=== PATIENT | female | born 1975 | race African-American/Black ===

== ENCOUNTER 2016-09-22 18:01 | Inpatient (IN) ==
[2016-09-22] MEDS ORDERED: LORazepam 2 MG/1 ML VIAL IV STA (18:27)
[2016-09-22] MEDS ORDERED: ONDANSETRON 4 MG/2 ML VIAL IV STA (18:27)
--- NOTE | 2016-09-22 18:33 | Emergency Department Note ---
Arrival - Arrival Chief Complaint: Weakness Stated Complaint: Problems Breathing ED Nursing Triage Note: Pt c/o weakness, feels shakey, chills, cough, and SOB Mode of Arrival: Ambulatory Limitations: No Limitations Source: Patient Time Seen by Provider: 09/22/16 18:27 - History of Present Illness HPI Narrative: This 41-year-old black female presents approximately 1 week post discharge from this institution where she had been treated for a malignant pleural effusion secondary to presumed metastatic breast cancer. After treatment of her effusion she felt significantly better and was discharged; however, in the past several days she has once again began to feel breathless with a bothersome dry cough and increased dyspnea on exertion. She likewise states she feels shaky and weird and side. She denies any chills, fever, sputum production, chest pain , hemoptysis, or other pain anywhere else. She currently is in a [facility] protocol for her breast cancer which was initially treated with right mastectomy. Currently the patient appears in no acute distress but is extremely anxious. Onset (ago): week(s) (Patient presents 1 week post onset of symptom) Date of Last Menstrual Period: does not have anymore Allergies/Adverse Reactions: Allergies Allergy/AdvReac Type Severity Reaction Status Date / Time Penicillins Allergy HIVES Verified 06/01/16 09:09 Home Medications: Home Medications Medication Instructions Recorded Confirmed Type Exemestane 25 mg PO DAILY W/SUPPER 09/14/16 09/22/16 History Zaleplon [Sonata] 5 mg PO BEDTIME PRN #0 capsule 09/17/16 09/22/16 Rx amLODIPine [Norvasc] 5 mg PO DAILY tablet 09/17/16 09/22/16 Rx metFORMIN [Glucophage] 500 mg PO TID W/MEALS tablet 09/17/16 09/22/16 Rx InvestigationalEntinostat 5mg 5 mg PO TU 09/22/16 09/22/16 History Or Placebo *Investigational Albuterol Sulfate [Proair Hfa] 1 puff INH Q4H PRN 09/22/16 09/22/16 History levoFLOXacin [Levofloxacin] 500 mg PO DAILY 09/22/16 09/22/16 History Review of System - Review of System 12 point system: reviewed and no additional remarkable complaints except as stated - Review of System Constitutional: Present: as per HPI Respiratory: Present: as per HPI Cardiovascular: Present: as per HPI Medical,Surgical,& Family Hx - Medical History Cardio: History of: Hypertension Endocrine: History of: Diabetes Mellitus (IDDM) Respiratory: History of: Pneumonia Reproductive: History of: Breast Cancer (right) - Surgical History Reproductive Surgeries: Comment Only: Gynecologic Surgery (R Masectomy (2012)) - Family History Family History: Reports;: Family Cancer, Family Diabetes, Family Heart Disease, Family Hypertension, Family Stroke - Social History Smoking Status: Never smoker Exam Physical Examination: GENERAL: Well developed, well nourished black female in no acute distress. HEENT: Normocephalic. No trauma. Moist mucous membranes. EOMI. PERRLA. ENT NML NECK: Supple. No adenopathy. CARDIAC: Regular. No murmurs. Heart rate 120 CHEST: Clear to auscultation but decreased breath sounds at the right base. No respiratory distress. O2 sat 100% status post right mastectomy. ABDOMEN: Soft. Nontender. Active bowel sounds. EXTREMITIES: No trauma. Normal ROM. No pedal edema. SKIN: No diaphoresis. No rash. NEURO: Alert. Oriented 3. Motor, sensory, vibratory intact. Very anxious. No focal deficits. Vital Signs: Vital Signs Temperature 97.5 F L 09/22/16 19:07 Pulse Rate 119 H 09/22/16 19:07 Respiratory Rate 20 09/22/16 19:07 Blood Pressure 144/105 09/22/16 19:07 O2 Sat by Pulse Oximetry 100 09/22/16 18:05 Course - Reevaluation(s) Reevaluation #1: Advised patient number turned of effusion and need for hospitalization. - Consultations Consultation #1: Discussed with hospitalist service who will admit for further evaluation treatment. Results - Labs CBC & BMP: 09/22/16 18:58 09/22/16 18:58 Labs: I have reviewed the lab and noted its gross normality. - Impressions EKG: Sinus tachycardia with short CA interval. Normal QRS duration. Left axis deviation. Poor R-wave progression anteriorly. Nonspecific ST changes. No acute injury pattern. - Diagnostic Findings Procedure: Chest x-ray: image reviewed by me, report reviewed by me ( Persistence of right pleural effusion with possible right lower lobe infiltrate/ atelectasis) Disposition Clinical Impression: Recurrent malignant effusion, Right breast cancer, Status post right mastectomy Case discussed with: patient, patient's family Disposition: Still a Patient Condition: Stable Time of Disposition: 19:57
[2016-09-22] MEDS ORDERED: ONDANSETRON 4 MG/2 ML VIAL ONE (19:08)
[2016-09-22] MEDS ORDERED: LORazepam 2 MG/1 ML VIAL ONE (19:09)
[2016-09-22 19:12] LABS: Basophils # 0.1 10*3/uL (0.0-0.2); Basophils % 0.6 % (0.0-0.8); Eosinophils # 0.3 10*3/uL (0.0-0.87); Eosinophils % 3.8 % (0.00-10.9); Hematocrit 39.3 VOL% (35.7-47.0); Hemoglobin 12.5 GM/DL (12.0-16.0); Immature Granulocytes % 0.3 %; Immature Granulocytes Absolute 0.03 #; Lymphocytes # 1.2 10*3/uL (1.4-4.0); Lymphocytes % 13.2 % (21.3-54.2); Mean Corpuscular HGB Conc 31.8 GM/DL (32-36); Mean Corpuscular Hemoglobin 28 PG (27-34); Mean Corpuscular Volume 87.3 FL (87-102); Mean Platelet Volume 11.7 FL (9.6-12.0); Monocytes % 10.6 % (1.7-12.7); Neutrophils # 6.5 10*3/uL (1.4-7.4); Neutrophils % 71.5 % (38.7-73.9); Platelet Count 183 T/CUMM (130-400); Red Cell Distribution Width 14.7 % (9.3-17.3)
[2016-09-22 19:18] LABS: Apearance,Urine CLEAR (Clear); Bilirubin,Urine Negative (Negative); Blood, Urine Negative (Negative); Glucose,Urine (UA) Negative (Negative); Ketones,Urine Negative (Negative); Mucus,Urine Occasional /LPF (Occasional); Nitrite,Urine Negative (Negative); Protein,Urine Negative; Squamous Epithelial Cell,Urine Occasional /HPF (0-10); Urine Color Yellow (Yellow); Urine Specific Gravity 1.021 (1.001-1.035); Urine Urobilinogen < 2.0 EU/DL (0.2-1.0); WBC,Urine <1 /HPF (0-6)
[2016-09-22 19:24] LABS: PT Patient Result 10.1 SECS; Partial Thromboplastin Time 27.1 SECS (0-40)
[2016-09-22 19:28] LABS: Barbiturates Screen,Urine Negative (Negative); Benzodiazepines Screen,Urine Negative (Negative); Cannabinoid Screen,Urine Negative (Negative); Opiate Screen,Urine Positive (Negative); Phencyclidine Screen,Urine Negative (Negative)
[2016-09-22 19:33] LABS: Alanine Aminotransferase 25 U/L (13-56); Albumin 3.6 G/DL (3.4-5.0); Alkaline Phosphatase 173 U/L (45-117); Aspartate Amino Transferase 16 U/L (0-37); Bilirubin,Total < 0.39 MG/DL (0.2-1.0); Blood Urea Nitrogen 15 MG/DL (7-18); Calcium 8.7 MG/DL (8.5-10.1); Glucose 190 MG/DL (74-106); Osmolality,Calculated 282.5 MOS/KG (273-304); Potassium 3.7 MMOL/L (3.5-5.1); Sodium 139 MMOL/L (136-145); Troponin I Only < 0.015 NG/ML (0.00-0.045)
--- NOTE | 2016-09-22 19:39 | XRay Report ---
History: Shortness of breath Date: 09/22/2016 Study: Chest x-ray PA and lateral Comparison exam: September 16, 2016 chest x-ray There is continue mild cardiomegaly. The mediastinal contour is unchanged. The pulmonary vasculature is nonengorged. The left lung is clear. There is some atelectasis/infiltrate in the right lung base which is grossly similar to the comparison study. There is mild right-sided pleural effusion which is the same or mildly increased. The osseous structures are unchanged. Impression: Right basilar atelectasis/infiltrate and pleural effusion, the same or only mildly increased PROCEDURE INTERPRETED AT [facility] DEPARTMENT OF RADIOLOGY Final Report Signed by: Dr. Indira Lopez
--- NOTE | 2016-09-22 20:26 | Hospitalist History & Physical ---
Assessment and Plan (1) Dyspnea Status: Acute Current Visit: No (2) Diabetes mellitus Status: Acute Current Visit: No (3) Metastatic breast cancer Status: Acute Current Visit: No (4) Pneumonia Status: Acute Current Visit: No (5) Hypertension Status: Acute Current Visit: No (6) Pleural effusion Status: Acute Assessment and plan: Our plan for this patient will be admission to our service. We will continue her home meds including antibiotic. Her basilar infiltrate and pleural effusion is only mildly increased. Will consult pulmonary for their input to see if additional intervention is needed for this patient. Current Visit: No History of Present Illness Chief complaint: Shortness of breath History of present illness: Ms. Calzada is a 41 year old female past medical history significant for diabetes hypertension and metastatic breast cancer who was recently hospitalized our service. She was hospitalized for a presumed malignant pleural effusion that was drained and discharged on Levaquin. She is doing well for a few days afterwards but for the past several days she began feeling breathless and a bothersome cough. She has noted increased dyspnea on exertion. And she feels shaky at times. She denies any fever sputum production chest pain hemoptysis or any pain elsewhere. She is currently receiving treatment for her metastatic breast cancer at [facility]. I was consulted to admit the patient to the emergency room. Home Medications Medication Instructions Recorded Confirmed Type Exemestane 25 mg PO DAILY W/SUPPER 09/14/16 09/22/16 History Zaleplon [Sonata] 5 mg PO BEDTIME PRN #0 capsule 09/17/16 09/22/16 Rx amLODIPine [Norvasc] 5 mg PO DAILY tablet 09/17/16 09/22/16 Rx metFORMIN [Glucophage] 500 mg PO TID W/MEALS tablet 09/17/16 09/22/16 Rx InvestigationalEntinostat 5mg 5 mg PO TU 09/22/16 09/22/16 History Or Placebo *Investigational Albuterol Sulfate [Proair Hfa] 1 puff INH Q4H PRN 09/22/16 09/22/16 History levoFLOXacin [Levofloxacin] 500 mg PO DAILY 09/22/16 09/22/16 History Allergies Allergy/AdvReac Type Severity Reaction Status Date / Time Penicillins Allergy HIVES Verified 06/01/16 09:09 Medical,Surgical,& Family Hx - Medical History Cardio: History of: Hypertension Endocrine: History of: Diabetes Mellitus (IDDM) Respiratory: History of: Pneumonia Reproductive: History of: Breast Cancer (right) - Surgical History Reproductive Surgeries: Comment Only: Gynecologic Surgery (R Masectomy (2012)) Additional Surgical History: Mastectomy - Family History Family History: Reports;: Family Cancer, Family Diabetes, Family Heart Disease, Family Hypertension, Family Stroke - Social History Smoking Status: Never smoker Have you smoked in the last 12 months: No Frequency of Alcohol Use: None Type of Drug Use: None 12 point system: reviewed and no additional remarkable complaints except as stated Exam - Constitutional General appearance: over weight - Head Head exam: Present: normal inspection - Eye Eye exam: Present: EOMI Pupils: Present: KERWIN - ENT ENT exam: Present: normal exam - Neck Neck exam: Present: normal inspection - Respiratory Respiratory exam: Present: clear to auscultation bilaterally, other (Decreased breath sounds in the right base) - Cardiovascular Cardiovascular exam: Present: other (Regular rhythm tacky rate) - GI/Abdominal GI/Abdominal exam: Present: normal bowel sounds - Extremities Exam Extremities exam: Present: normal inspection - Back Exam Back exam: Present: normal inspection - Psychiatric Psychiatric exam: Present: normal affect - Skin Skin exam: Present: normal color Results - Labs CBC & BMP: 09/22/16 18:58 09/22/16 18:58
[2016-09-22] MEDS ORDERED: DEXTROSE 50% 25 GM/50 ML VIAL IV PRN ×2 (20:35)
[2016-09-22] MEDS ORDERED: GLUCAGON 1 MG VIAL IM PRN ×2 (20:35)
[2016-09-22] MEDS ORDERED: ACETAMINOPHEN 325 MG TABLET PO PRN (20:35)
[2016-09-22] MEDS ORDERED: LEVALBUTEROL 1.25 MG/3 ML NEB RESP TX PRN (20:38)
[2016-09-22] MEDS ORDERED: ZALEPLON 5 MG CAPSULE PO PRN (21:05)
[2016-09-22] MEDS: INSULIN REGULAR 100 UNIT/ML SUBCUT SCH (21:59)
[2016-09-22] MEDS: LEVALBUTEROL 1.25 MG/3 ML NEB RESP TX SCH (23:58)
[2016-09-23 06:16] LABS: Basophils # 0.1 10*3/uL (0.0-0.2); Basophils % 0.7 % (0.0-0.8); Eosinophils # 0.3 10*3/uL (0.0-0.87); Eosinophils % 4.1 % (0.00-10.9); Hematocrit 35.6 VOL% (35.7-47.0); Hemoglobin 11.3 GM/DL (12.0-16.0); Immature Granulocytes % 0.4 %; Immature Granulocytes Absolute 0.03 #; Lymphocytes # 1.1 10*3/uL (1.4-4.0); Lymphocytes % 16.2 % (21.3-54.2); Mean Corpuscular HGB Conc 31.7 GM/DL (32-36); Mean Corpuscular Hemoglobin 28 PG (27-34); Monocytes # 0.8 10*3/uL (0.11-0.8); Monocytes % 10.8 % (1.7-12.7); Neutrophils # 4.8 10*3/uL (1.4-7.4); Neutrophils % 67.8 % (38.7-73.9); Platelet Count 163 T/CUMM (130-400); Red Blood Count 4.09 MC/CUMM (3.8-5.5)
--- NOTE | 2016-09-23 06:31 | EKG Report ---
Stationary ECG Study [facility] ER Test Date: 09/22/2016 7:54:09 PM Pat Name: KELLY PENA Department: Room: 236 Gender: F [facility] Director: MATTY : 1975 Requested by: Leonardo Baer Order Number: [id number] Reading MD: CASSANDRA ZAMBRANO Intervals [place] Rate: 123 P: 57 OK: 108 QRS: -31 QRSD: 85 T: 70 QT: 337 QTc: 410 Interpretive Statements SINUS TACHYCARDIA WITH SHORT OK INTERVAL MILD LEFT AXIS DEVIATION Electronically Signed On 09-26-16 09:55:38 CDT by CASSANDRA ZAMBRANO [email or web address]
[2016-09-23 06:45] LABS: Calcium 8.2 MG/DL (8.5-10.1); Osmolality,Calculated 284.1 MOS/KG (273-304); Potassium 3.6 MMOL/L (3.5-5.1)
[2016-09-23] MEDS: LEVALBUTEROL 1.25 MG/3 ML NEB RESP TX SCH ×2 (07:15→14:45)
[2016-09-23] MEDS: INSULIN REGULAR 100 UNIT/ML SUBCUT SCH ×4 (07:30→20:40)
--- NOTE | 2016-09-23 09:21 | Hospitalist Progress Note ---
Assessment and Plan (1) Orthopnea Status: Acute Assessment and plan: This is more so with these events. I am concerned about possibility of pericardial effusion will therefore do an echocardiogram. The pleural effusion comparative does not look as bad as what it was before. Current Visit: Yes (2) Dyspnea Status: Acute Assessment and plan: Diuresis judiciously. Follow vital signs. Follow electrolytes. Follow the outcome of the echocardiogram. Current Visit: No (3) Metastatic breast cancer Status: Acute Assessment and plan: Continue current plan of management. Most of this can be outpatient. Current Visit: No (4) Pleural effusion Status: Acute Current Visit: No Hospitalist: Subjective Interval history: Patient seen interviewed and examined chart has been reviewed. She is thinks she is breathing better now than when she came to the emergency room. Admitted to the hospital with shortness of breath at rest and with activity. History of right-sided pleural effusion complicating breast malignancy. She feels a whole lot better when she sits up doing raised shortness of breath. There is no chest pain. Chest x-ray has been looked that it does seem to have been an increase in cardiac silhouette however this was on AP view chest x-ray. Still there is concern about a possible pericardial effusion complicating the malignancy. Exam - Constitutional Vitals: Period Temp Pulse Resp BP Sys/Ferguson Pulse Ox Last 24 Hr 97.6 F-98.3 F 102-115 16-20 104-113/70-82 93-100 General appearance: normal weight - Head Head exam: Present: normocephalic - ENT ENT exam: Present: normal oropharynx - Neck Neck exam: Present: normal inspection, other (No adenopathy) - Respiratory Respiratory exam: Present: clear to auscultation bilaterally - Cardiovascular Cardiovascular exam: Present: tachycardia, other (Regular rhythm. Rate below 120.) - Extremities Exam Extremities exam: Present: normal inspection, full ROM - Back Exam Back exam: Present: normal inspection - Neurological Exam Neurological exam: Present: alert, oriented X3, CN II-XII intact - Psychiatric Psychiatric exam: Present: normal affect, normal mood - Skin Skin exam: Present: normal color, warm, dry Results - Labs CBC & BMP: 09/23/16 05:12 09/23/16 05:12 Lab Results: I have reviewed the past 24 hour labs
[2016-09-23] MEDS: LEVOFLOXACIN 500 MG TABLET PO SCH (09:25)
[2016-09-23] MEDS: amLODIPine 5 MG TABLET PO SCH (09:25)
[2016-09-23] MEDS: metFORMIN 500 MG TABLET PO SCH ×3 (09:26→17:26)
[2016-09-23] MEDS: PANTOPRAZOLE 40 MG TABLET PO SCH (09:26)
--- NOTE | 2016-09-23 12:48 | Pulmonology Consult Note ---
Assessment and Plan (1) Diabetes mellitus Status: Acute Assessment and plan: Her glucoses are doing okay and her glucose is 124 this morning. Current Visit: No (2) Hypertension Status: Acute Assessment and plan: Her blood pressure and heart rate have been stable Current Visit: No (3) Metastatic breast cancer Status: Acute Assessment and plan: The patient is undergoing treatment for metastatic breast cancer. Current Visit: No (4) Pleural effusion Status: Acute Assessment and plan: She had a thoracentesis last week and did fairly well with this. It is hard to see a lot of fluid there now. Current Visit: No (5) Pneumonia Status: Acute Assessment and plan: She continues to have right lower lobe consolidation. Will plan a bronchoscope tomorrow to check her airways and obtain cultures. Current Visit: No History of Present Illness Chief complaint: Shortness of breath History of present illness: Ms. Calzada is a 41 year old black female that has metastatic breast cancer. She is followed at [facility]. She was in the hospital last week with some shortness of breath and had a thoracentesis done. She seemed to be a little better. She says at home she did have a little bit of coughing and congestion and does have a little more shortness of breath. She has not been having any definite fever. She is not complaining of much pleurisy.She has not been able to cough up much sputum. She did go to [facility] last week just for a quick checkup. She has been tolerating her medicines okay Home Medications Medication Instructions Recorded Confirmed Type Exemestane 25 mg PO DAILY W/SUPPER 09/14/16 09/22/16 History Zaleplon [Sonata] 5 mg PO BEDTIME PRN #0 capsule 09/17/16 09/22/16 Rx amLODIPine [Norvasc] 5 mg PO DAILY tablet 09/17/16 09/22/16 Rx metFORMIN [Glucophage] 500 mg PO TID W/MEALS tablet 09/17/16 09/22/16 Rx InvestigationalEntinostat 5mg 5 mg PO TU 09/22/16 09/22/16 History Or Placebo *Investigational Albuterol Sulfate [Proair Hfa] 1 puff INH Q4H PRN 09/22/16 09/22/16 History levoFLOXacin [Levofloxacin] 500 mg PO DAILY 09/22/16 09/22/16 History Allergies Allergy/AdvReac Type Severity Reaction Status Date / Time Penicillins Allergy HIVES Verified 06/01/16 09:09 - Constitutional Constitutional: Present: fatigue, weakness. Absent: chills, fever(s) - EENT Eyes: Absent: loss of vision Ears: Absent: decreased hearing Nose, mouth and throat: Absent: dysphagia, headache(s) - Cardiovascular Cardiovascular: Present: dyspnea on exertion, orthopnea. Absent: chest pain at rest, edema - Respiratory Respiratory: Present: cough, change in phlegm color. Absent: hemoptysis, wheezing, pain on inspiration - Gastrointestinal Gastrointestinal: Absent: abdominal pain, change in bowel habits, nausea, vomiting - Genitourinary Genitourinary: Absent: difficulty urinating, dysuria, hematuria - Musculoskeletal Musculoskeletal: Absent: arthralgias, muscle weakness - Neurological Neurological: Absent: abnormal speech, focal weakness Exam (Pulmonay) H&P - Constitutional Vitals: Period Temp Pulse Resp BP Sys/Ferguson Pulse Ox Last 24 Hr 97.6 F-98.3 F 102-115 16-20 104-116/70-94 93-100 Exam: General appearance: no acute distress, over weight, she looks comfortable sitting up in a chair. She seems to be breathing okay - Head Head exam: Present: normal inspection, normocephalic - Eye Eye exam: Present: EOMI. Absent: scleral icterus Pupils: Present: KERWIN - ENT ENT exam: Present: normal exam - Neck Neck exam: Present: normal inspection. Absent: lymphadenopathy, thyromegaly - Respiratory Respiratory exam: Present: She has fairly good air movement but does have decreased breath sounds on the right. She has had a previous right chest surgery. - Cardiovascbetular Cardiovascular exam: Present: regular rate and rhythm. Absent: gallop, systolic murmur - GI/Abdominal GI/Abdominal exam: Present: normal bowel sounds, soft. Absent: organomegaly, tenderness - Extremities Exam Extremities exam: Absent: calf tenderness, edema - Neurological Exam Neurological exam: Present: alert, oriented X3, CN II-XII intact - Psychiatric Psychiatric exam: Present: normal affect - Skin Skin exam: Present: warm, dry Medical,Surgical,& Family Hx - Medical History Cardio: History of: Hypertension HEENT: History of: Eye Problem (far sighted) Endocrine: History of: Diabetes Mellitus (NIDDM) No history of: Diabetes Mellitus (IDDM) Respiratory: History of: Pneumonia No history of: Asthma, Bronchitis, COPD, Intubation, Obstructive Sleep Apnea , Pulmonary Embolism, Pulmonary Hypertension, Lung Cancer, Respiratory Problems Reproductive: History of: Breast Cancer (right) Other: No history of: Cancer, Eczema, HIV, Malignant Hyperthermia - Surgical History Thoracic Surgeries: Patient denies;: Lobectomy HEENT Surgeries: Patient denies: Eye Surgery, Thyroid Surgery, Tonsilectomy & Adenoidectomy Abdominal Surgeries: Patient denies: Abdominal Surgery, Appendectomy, Cholecystectomy, Colonoscopy , Gastric Bypass Surgery, EGD, Hernia Repair Reproductive Surgeries: Surgical HX of;: Breast Surgery, Gynecologic Surgery (R Masectomy (2011)) Patient denies;: Section, Dilation and Curettage, Hysterectomy, Tubal Ligation - Family History Family History: Reports;: Family Cancer (mat gf), Family Diabetes (pat gm), Family Hypertension (pat gm,aunt x2) Denies;: Family Anesthesia Reaction, Family Heart Disease, Family Hematology , Family Psychiatric Problems, Family Stroke - Social History Smoking Status: Never smoker Frequency of Alcohol Use: None Type of Drug Use: None Results - Labs CBC & BMP: 09/23/16 05:12 09/23/16 05:12 - Diagnostic Findings Procedure: Chest x-ray: image reviewed by me, report reviewed by me (Chest x- ray still shows considerable consolidation in the right lower lung. There does not appear to be much pleural fluid.)
--- NOTE | 2016-09-23 16:04 | ECHO Report ---
Arti Calzada Exam Date: 09/23/2016 12:20 Referring Physician: Technologist: Honey Renteria RDCS Age: 41 Ht (in): 62 Wt (lb): 192 Gender: F Exam Location: [facility] Echo Indications: Orthopnea, Dyspnea, unspecified, Metastatic breast CA, Pleural effusion, not elsewhere classified, IDDM, Pneumonia, Cough BP: 116 / 94 HR: 105 Rhythm: Sinus Technical Quality: Technically difficult study IMPRESSIONS Left ventricular ejection fraction is estimated at 60 %. Normal left ventricular wall thickness. Trace mitral valve regurgitation. MEASUREMENTS (Male / Female) Normal Values 2D ECHO LV Diastolic Diameter PLAX 4.0 cm 4.2 - 5.9 / 3.9 - 5.3 cm LV Systolic Diameter PLAX 2.3 cm LV Fractional Shortening PLAX 41.7 % IVS Diastolic Thickness 1.0 cm 0.6 - 1.0 / 0.6 - 0.9 cm LVPW Diastolic Thickness 1.0 cm 0.6 - 1.0 / 0.6 - 0.9 cm RV Internal Dim ED PLAX 3.0 cm Aortic Root Diameter 2.7 cm LA Systolic Diameter LX 3.4 cm 3.0 - 4.0 / 2.7 - 3.8 cm FINDINGS Left Ventricle Normal left ventricular cavity size. Normal left ventricular wall thickness. Left ventricular ejection fraction is estimated at 60 %. Right Ventricle The right ventricle is normal in size and function. Right Atrium The right atrium is normal in size. Left Atrium The left atrium is normal in size. Mitral Valve Morphologically normal mitral valve. Trace mitral valve regurgitation. Aortic Valve Morphologically normal aortic valve without significant sclerosis or stenosis. There is no aortic regurgitation. Tricuspid Valve Morphologically normal tricuspid valve without significant stenosis or regurgitation. Pulmonary artery systolic pressure is normal. Pulmonic Valve Morphologically normal pulmonic valve without significant stenosis. There is no pulmonic regurgitation. Pericardium Normal pericardium without effusion. Aorta Normal ascending aorta dimension. Jalen Huizar MD (Electronically Signed) Final Date: 23 September 2016 16:03
[2016-09-24] MEDS: LEVALBUTEROL 1.25 MG/3 ML NEB RESP TX SCH ×4 (00:06→23:41)
[2016-09-24] MEDS ORDERED: GLYCOPYRROLATE 0.4 MG/2 ML VIAL IM ONE (07:00)
[2016-09-24] MEDS ORDERED: PROMETHAZINE 25 MG/1 ML VIAL IM ONE (07:00)
[2016-09-24] MEDS ORDERED: MEPERIDINE 50 MG/1 ML VIAL IM ONE (07:00)
[2016-09-24] MEDS ORDERED: MIDAZOLAM 2 MG/2 ML VIAL ONE (07:16)
[2016-09-24] MEDS ORDERED: MIDAZOLAM 2 MG/2 ML VIAL IV ONE (07:30)
[2016-09-24] MEDS ORDERED: LIDOCAINE 1% 20 ML VIAL MISC INJ ONE (07:30)
[2016-09-24] MEDS ORDERED: LIDOCAINE 2% VISCOUS 100 ML BOTTLE SWISH/SPIT ONE (07:30)
[2016-09-24] MEDS ORDERED: LIDOCAINE 4% TOP SOLN 50 ML BOTTLE RESP TX ONE (07:30)
--- NOTE | 2016-09-24 07:47 | Pulmonology Progress Note ---
Pulmonary - PN: Subj Interval history: Patient is a 41-year-old black lady that has metastatic breast cancer. She has had a persistent right lower lobe infiltrate along with some effusion. She did have a thoracentesis last week. She has some cough and shortness of breath but otherwise has been relatively stable she did have an echocardiogram yesterday that showed good left ventricular function. Today will go ahead with the bronchoscope and check her airways. Exam (Progress Note) - Constitutional Vitals: Period Temp Pulse Resp BP Sys/Ferguson Pulse Ox Last 24 Hr 97.7 F-98.6 F 96-137 12-27 113-159/73-109 94-99 Exam: General appearance: no acute distress, over weight, she looks comfortable sitting up in a chair. She is not having any respiratory distress. - Head Head exam: Present: normal inspection, normocephalic - Eye Eye exam: Present: EOMI. Absent: scleral icterus Pupils: Present: KERWIN - ENT ENT exam: Present: normal exam - Neck Neck exam: Present: normal inspection. Absent: lymphadenopathy, thyromegaly - Respiratory Respiratory exam: Present: She has fairly good air movement but does have decreased breath sounds on the right. She has had a previous right chest surgery. - Cardiovascbetular Cardiovascular exam: Present: regular rate and rhythm. Absent: gallop, systolic murmur - GI/Abdominal GI/Abdominal exam: Present: normal bowel sounds, soft. Absent: organomegaly, tenderness - Extremities Exam Extremities exam: Absent: calf tenderness, edema - Neurological Exam Neurological exam: Present: alert, oriented X3, CN II-XII intact - Psychiatric Psychiatric exam: Present: normal affect - Skin Skin exam: Present: warm, dry Results - Labs CBC & BMP: 09/23/16 05:12 09/23/16 05:12 Assessment and Plan (1) Diabetes mellitus Status: Acute Assessment and plan: Her glucoses are doing okay and her glucose is 165 this morning. Current Visit: No (2) Hypertension Status: Acute Assessment and plan: Her blood pressure has been okay but her heart rate is elevated. She has a sinus tachycardia. Current Visit: No (3) Metastatic breast cancer Status: Acute Assessment and plan: The patient is undergoing treatment for metastatic breast cancer. She has an infiltrate and effusion in the right chest. Current Visit: No (4) Pleural effusion Status: Acute Assessment and plan: She had a thoracentesis last week and did fairly well with this. It is hard to see a lot of fluid there now. The pleural fluid cytology last week was negative. Current Visit: No (5) Pneumonia Status: Acute Assessment and plan: She continues to have right lower lobe consolidation. Will proceed with a bronchoscope to check her airways. Current Visit: No
--- NOTE | 2016-09-24 07:53 | Operative Note ---
Date of procedure: 09/24/16 Pre-op diagnosis: Right lower lobe infiltrate Post-op diagnosis: same Procedure: The patient is a 41-year-old black lady with metastatic breast cancer. She comes in with some cough and shortness of breath and a right lower lobe infiltrate. Bronchoscopy is done to check airways and collect cultures. Timeout was performed to identify the patient. The patient is in the bronchoscopy lab. Preop: Demerol 50 mg, Phenergan 25 mg, Robinul 0.1 mg IM. Anesthesia: Versed 2 mg IVP, topical lidocaine. Procedure: The fiberoptic bronchoscope was passed transnasally through the vocal cords into the lungs. The bronchopulmonary segments were identified and specimens were obtained. Findings: The vocal cords trachea and vinay are unremarkable. The right upper lobe, right middle lobe, and right lower lobe are all open. The left upper lobe , lingula, and left lower lobe are open. There are no endobronchial lesions seen. The right lower lobe was irrigated with saline and washings were sent for culture and cytology. The airways looked unremarkable and there were no significant purulent secretions. Once the specimens were collected the procedure was stopped. She tolerated the procedure well without problems. Impression: Right lower lobe infiltrate with no signs of endobronchial obstruction or tumor. Plan: She will continue with antibiotics and respiratory therapy. Anesthesia: conscious sedation Surgeon / Physician: Jarred Hernandez Estimated blood loss: none Specimens: other (Washings were sent for culture and cytology) Condition: stable Disposition: floor Results - Labs CBC & BMP: 09/23/16 05:12 09/23/16 05:12 Discharge Plan - Discharge Medications No Action Exemestane 25 mg PO DAILY W/SUPPER Zaleplon [Sonata] 5 mg PO BEDTIME PRN #0 capsule PRN Reason: Insomnia amLODIPine [Norvasc] 5 mg PO DAILY tablet metFORMIN [Glucophage] 500 mg PO TID W/MEALS tablet Albuterol Sulfate [Proair Hfa] 1 puff INH Q4H PRN PRN Reason: Shortness Of Breath/Wheezing levoFLOXacin [Levofloxacin] 500 mg PO DAILY InvestigationalEntinostat 5mg Or Placebo *Investigational 5 mg PO TU - Follow Up or Referral - Forms/Instructions
[2016-09-24] MEDS: [UNRECOGNIZED DRUG - OTHER] PO SCH (10:58)
[2016-09-24] MEDS: metFORMIN 500 MG TABLET PO SCH ×3 (10:58→17:23)
[2016-09-24] MEDS: LEVOFLOXACIN 500 MG TABLET PO SCH (10:58)
[2016-09-24] MEDS: PANTOPRAZOLE 40 MG TABLET PO SCH (10:58)
[2016-09-24] MEDS: amLODIPine 5 MG TABLET PO SCH (10:58)
[2016-09-24] MEDS: INSULIN REGULAR 100 UNIT/ML SUBCUT SCH ×3 (11:25→17:23)
--- NOTE | 2016-09-24 11:32 | Hospitalist Progress Note ---
Assessment and Plan (1) Diabetes mellitus Status: Chronic Current Visit: No Qualifiers: Diabetes mellitus type: type 2 (2) Metastatic breast cancer Status: Chronic Assessment and plan: Active recurrence of previously treated right breast cancer. Right pleural effusion status post thoracentesis incomplete lung reexpansion. Current Visit: No Hospitalist: Subjective Interval history: 41-year-old female history of breast cancer 2010. She was treated with surgery and radiation treatment completing radiation treatment in 2012. She has had recurrence of her malignancy and is currently on chemotherapy. She presented earlier in the month with a large right pleural effusion which was drained. It appears that she had incomplete reexpansion of her life right lung and earlier today underwent bronchoscopy. She tolerated the procedure well and has been coughing up some viscous material subsequent to the procedure. Her vital signs are stable she is afebrile. Exam - Constitutional Vitals: Period Temp Pulse Resp BP Sys/Ferguson Pulse Ox Last 24 Hr 97.7 F-98.6 F 96-137 12-27 113-159/73-109 94-99 General appearance: over weight - Respiratory Respiratory exam: Present: decreased breath sounds (Over the right lung base), other (No pleural rub). Absent: rales, rhonchi, wheezes - Cardiovascular Cardiovascular exam: Present: regular rate and rhythm - GI/Abdominal GI/Abdominal exam: Absent: ascites, organomegaly, tenderness - Extremities Exam Extremities exam: Absent: edema - Neurological Exam Neurological exam: Present: alert, oriented X3 Results - Labs CBC & BMP: 09/23/16 05:12 09/23/16 05:12
--- NOTE | 2016-09-25 06:45 | XRay Report ---
XR chest 1V portable Indication: Status post bronchoscopy. Comparison: Chest x-ray 09/22/2016 Technique: Portable AP chest was performed. Findings: Right hemidiaphragm remains indistinct. The appearance of the right lower chest has changed little since comparison study. Small amount of pleural fluid or pleural thickening along the lateral right chest wall is noted. Chest is otherwise stable. Impression: 1. No adverse interval change in chest. Small amount pleural fluid or pleural thickening along the lateral margin of the right chest wall could be considered. Additional parenchymal opacities in the right lung base are stable. 09/25/2016 6:41 AM PROCEDURE INTERPRETED AT [facility] DEPARTMENT OF RADIOLOGY Final Report Signed by: Dr. Pablo Carrillo
--- NOTE | 2016-09-25 07:46 | Hospitalist Progress Note ---
Assessment and Plan (1) Diabetes mellitus Status: Chronic Current Visit: No Qualifiers: Diabetes mellitus type: type 2 (2) Metastatic breast cancer Status: Chronic Assessment and plan: Active recurrence of previously treated right breast cancer. Right pleural effusion status post thoracentesis incomplete lung reexpansion. Current Visit: No Hospitalist: Subjective Interval history: 41-year-old female with diagnosis of breast cancer 2010 with recurrence. She was initially treated with surgery and radiation treatment completing in 2012 the radiation treatment. She has recurrent disease and is currently receiving chemotherapy. She presented earlier in the month with large right pleural effusion which was drained with what appears to be incomplete reexpansion of the lung. She underwent on the bronchoscopy. Today's chest x-ray continues to show incomplete reexpansion probably a small amount of pleural effusion is present as residual. Vital signs are stable overnight she was afebrile. Exam - Constitutional Vitals: Period Temp Pulse Resp BP Sys/Ferguson Pulse Ox Last 24 Hr 97.7 F-99.3 F 100-136 14-26 102-124/63-96 94-98 General appearance: over weight - Respiratory Respiratory exam: Present: decreased breath sounds (Over right base). Absent: rales, rhonchi, wheezes - Cardiovascular Cardiovascular exam: Present: regular rate and rhythm - GI/Abdominal GI/Abdominal exam: Present: normal bowel sounds - Extremities Exam Extremities exam: Absent: edema - Neurological Exam Neurological exam: Present: alert, oriented X3 Results - Labs CBC & BMP: 09/23/16 05:12 09/23/16 05:12 - Diagnostic Findings Procedure: Chest x-ray: image reviewed by me (Continued volume loss in the right base)
[2016-09-25] MEDS: LEVALBUTEROL 1.25 MG/3 ML NEB RESP TX SCH ×2 (07:56→14:19)
--- NOTE | 2016-09-25 09:18 | Pulmonology Progress Note ---
Pulmonary - PN: Subj Interval history: Patient is a 41-year-old black lady that has metastatic breast cancer. She has had a persistent right lower lobe infiltrate along with some effusion. She did have a thoracentesis last week. She has some cough and shortness of breath but otherwise has been relatively stable she did have an echocardiogram yesterday that showed good left ventricular function. She did well yesterday with a bronchoscopy. She is not having any fever now and her breathing is stable. Her cultures have been negative so far. Her chest x-ray looks much better today. She does has a very mild right lower lobe infiltrate now. Exam (Progress Note) - Constitutional Vitals: Period Temp Pulse Resp BP Sys/Ferguson Pulse Ox Last 24 Hr 97.7 F-99.3 F 100-122 17-22 102-122/63-91 94-98 Exam: General appearance: no acute distress, over weight, she looks comfortable sitting up in a chair. She is not having any respiratory distress. - Head Head exam: Present: normal inspection, normocephalic - Eye Eye exam: Present: EOMI. Absent: scleral icterus Pupils: Present: KERWIN - ENT ENT exam: Present: normal exam - Neck Neck exam: Present: normal inspection. Absent: lymphadenopathy, thyromegaly - Respiratory Respiratory exam: Present: She has fairly good air movement and her lungs do sound better. She has some very minimal crackles in the right base. I cannot detect a lot of fluid. - Cardiovascbetular Cardiovascular exam: Present: regular rate and rhythm. Absent: gallop, systolic murmur - GI/Abdominal GI/Abdominal exam: Present: normal bowel sounds, soft. Absent: organomegaly, tenderness - Extremities Exam Extremities exam: Absent: calf tenderness, edema - Neurological Exam Neurological exam: Present: alert, oriented X3, CN II-XII intact - Psychiatric Psychiatric exam: Present: normal affect - Skin Skin exam: Present: warm, dry Results - Labs CBC & BMP: 09/23/16 05:12 09/23/16 05:12 - Diagnostic Findings Procedure: Chest x-ray: image reviewed by me, report reviewed by me (Her chest x -ray looks better with improved right lower lobe infiltrate.) Assessment and Plan (1) Diabetes mellitus Status: Chronic Assessment and plan: Her glucoses are doing okay and her glucose is 122 this morning. Current Visit: No Qualifiers: Diabetes mellitus type: type 2 (2) Hypertension Status: Acute Assessment and plan: Her blood pressure has been okay but her heart rate is elevated. She has a sinus tachycardia. Current Visit: No (3) Metastatic breast cancer Status: Chronic Assessment and plan: The patient is undergoing treatment for metastatic breast cancer. Current Visit: No (4) Pleural effusion Status: Acute Assessment and plan: She had a thoracentesis last week and did fairly well with this. It is hard to see a lot of fluid there now. The pleural fluid cytology last week was negative. Current Visit: No (5) Pneumonia Status: Acute Assessment and plan: She continues to have right lower lobe consolidation. Airways looked okay yesterday. Her cultures are still negative. Clinically she is doing better and her chest x-ray looks better. She will continue with IV antibiotics. Current Visit: No
[2016-09-25] MEDS: metFORMIN 500 MG TABLET PO SCH ×3 (09:46→16:46)
[2016-09-25] MEDS: PANTOPRAZOLE 40 MG TABLET PO SCH (09:46)
[2016-09-25] MEDS: amLODIPine 5 MG TABLET PO SCH (09:46)
[2016-09-25] MEDS: LEVOFLOXACIN 500 MG TABLET PO SCH (09:47)
[2016-09-25] MEDS: [UNRECOGNIZED DRUG - OTHER] PO SCH (09:48)
[2016-09-25] MEDS: CEFTAROLINE 600 MG in SODIUM CHLORIDE 0.9% 100 ML IV SCH ×2 (10:10→22:06)
--- NOTE | 2016-09-25 10:46 | Pathology Report from [facility] ---
ACCESSION # : [id number] PATIENT NAME : Arti Calzada ORDERING DR : BELINDA WARD MD CLINICAL HX: Pleural effusion, pneumonia, metastatic breast ca POST-OP DX: Same SPECIMEN INFO: Washing- Bronchial, bilateral - 20 mls cloudy ordonez CLASS: I CLASS COMMENTS: Benign respiratory epithelial cells and pulmonary macrophagesCELL BLOCK: Same CLASS LEGEND: CLASS 0 Material inadequate for diagnosis because of (see comment) CLASS I Absence of atypical or abnormal cells CLASS II Atypical Cytology but no evidence of malignancy CLASS III Cytology suggestive of but not conclusive for malignancy CLASS IV Cytology strongly suggestive of malignancy CLASS V Cytology conclusive for malignancy SERVICE DATE: 09/24/2016 REPORT DATE: 09/25/2016 PATHOLOGIST: Fabiola Antunez
[2016-09-25] MEDS: INSULIN REGULAR 100 UNIT/ML SUBCUT SCH ×5 (11:22→21:00)
[2016-09-25] MEDS: ONDANSETRON 4 MG/2 ML VIAL IV PRN ×2 (11:24→21:34)
[2016-09-26] MEDS: LEVALBUTEROL 1.25 MG/3 ML NEB RESP TX SCH ×3 (00:07→15:12)
[2016-09-26] MEDS: INSULIN REGULAR 100 UNIT/ML SUBCUT SCH ×4 (08:03→21:44)
--- NOTE | 2016-09-26 08:13 | Hospitalist Progress Note ---
Assessment and Plan (1) Diabetes mellitus Status: Chronic Current Visit: No Qualifiers: Diabetes mellitus type: type 2 (2) Metastatic breast cancer Status: Chronic Assessment and plan: Active recurrence of previously treated right breast cancer. Right pleural effusion status post thoracentesis incomplete lung reexpansion. Current Visit: No Hospitalist: Subjective Interval history: 41-year-old female with diagnosis of breast cancer 2010' with recurrence. She is currently receiving chemotherapy. She presented earlier in the month with a large right pleural effusion which was drained with what appears to be incomplete reexpansion of the lung. On September 24 she underwent bronchoscopy. Bronchial washings show normal bryan negative AFB smear and negative fungal smear. Yesterday's x-ray continues to show low volume in the right lower lung field with small effusion. Her vitals are stable and she is afebrile. Exam - Constitutional Vitals: Period Temp Pulse Resp BP Sys/Ferguson Pulse Ox Last 24 Hr 97.7 F-98.3 F 98-124 18-20 111-131/58-80 92-100 General appearance: over weight - Respiratory Respiratory exam: Present: other (Decreased breath sounds over the right lung base). Absent: rales, rhonchi, wheezes - Cardiovascular Cardiovascular exam: Present: regular rate and rhythm - GI/Abdominal GI/Abdominal exam: Present: normal bowel sounds. Absent: tenderness - Extremities Exam Extremities exam: Absent: edema - Neurological Exam Neurological exam: Present: alert, oriented X3 Results - Labs CBC & BMP: 09/23/16 05:12 09/23/16 05:12
[2016-09-26] MEDS: metFORMIN 500 MG TABLET PO SCH ×3 (08:59→16:30)
[2016-09-26] MEDS: [UNRECOGNIZED DRUG - OTHER] PO SCH (08:59)
[2016-09-26] MEDS: PANTOPRAZOLE 40 MG TABLET PO SCH (08:59)
[2016-09-26] MEDS: LEVOFLOXACIN 500 MG TABLET PO SCH (08:59)
[2016-09-26] MEDS: amLODIPine 5 MG TABLET PO SCH (08:59)
[2016-09-26] MEDS: CEFTAROLINE 600 MG in SODIUM CHLORIDE 0.9% 100 ML IV SCH ×2 (09:49→22:54)
[2016-09-26] MEDS: ONDANSETRON 4 MG/2 ML VIAL IV PRN ×3 (09:49→22:23)
--- NOTE | 2016-09-26 11:47 | Pulmonology Progress Note ---
Pulmonary - PN: Subj Interval history: Patient is a 41-year-old black lady that has metastatic breast cancer. She has had a persistent right lower lobe infiltrate along with some effusion. She did have a thoracentesis last week. She has some cough and shortness of breath but otherwise has been relatively stable she did have an echocardiogram yesterday that showed good left ventricular function. She did well with a bronchoscopy. Her cultures are negative and clinically she is doing better. Her maximum temperature was 99. She has a dry cough but not much sputum. She says she is walking around better and has less shortness of breath. Overall she is feeling better. Exam (Progress Note) - Constitutional Vitals: Period Temp Pulse Resp BP Sys/Ferguson Pulse Ox Last 24 Hr 97.7 F-99.0 F 98-124 18-20 105-131/58-80 92-100 Exam: General appearance: no acute distress, over weight, she looks comfortable sitting up in a chair. She is not having any respiratory distress. - Head Head exam: Present: normal inspection, normocephalic - Eye Eye exam: Present: EOMI. Absent: scleral icterus Pupils: Present: KERWIN - ENT ENT exam: Present: normal exam - Neck Neck exam: Present: normal inspection. Absent: lymphadenopathy, thyromegaly - Respiratory Respiratory exam: Present: She has fairly good air movement and her lungs do sound better. She has minimal crackles in the right base with some slight dullness. Otherwise she is moving air well with clear lung finn. - Cardiovascbetular Cardiovascular exam: Present: regular rate and rhythm. Absent: gallop, systolic murmur - GI/Abdominal GI/Abdominal exam: Present: normal bowel sounds, soft. Absent: organomegaly, tenderness - Extremities Exam Extremities exam: Absent: calf tenderness, edema - Neurological Exam Neurological exam: Present: alert, oriented X3, CN II-XII intact - Psychiatric Psychiatric exam: Present: normal affect - Skin Skin exam: Present: warm, dry Results - Labs CBC & BMP: 09/23/16 05:12 09/23/16 05:12 Assessment and Plan (1) Diabetes mellitus Status: Chronic Assessment and plan: Her glucoses are doing okay and her glucose is 148 this morning. Current Visit: No Qualifiers: Diabetes mellitus type: type 2 (2) Hypertension Status: Acute Assessment and plan: Her blood pressure has been okay but her heart rate is elevated. She has a sinus tachycardia. Her heart rate is better today. Current Visit: No (3) Metastatic breast cancer Status: Chronic Assessment and plan: The patient is undergoing treatment for metastatic breast cancer. Current Visit: No (4) Pleural effusion Status: Acute Assessment and plan: She had a thoracentesis last week and did fairly well with this. She has only a small amount of fluid present now. Current Visit: No (5) Pneumonia Status: Acute Assessment and plan: She continues to have right lower lobe consolidation. Airways looked okay yesterday. Her cultures are still negative. He is having less cough and less shortness of breath. Overall she seems to be a little better. She can probably go home in the next couple days. Current Visit: No
[2016-09-27] MEDS: LEVALBUTEROL 1.25 MG/3 ML NEB RESP TX SCH ×4 (00:26→22:53)
[2016-09-27] MEDS ORDERED: LORazepam 1 MG TABLET PO PRN (00:33)
[2016-09-27] MEDS ORDERED: ONDANSETRON 4 MG/2 ML VIAL IV ONE (00:53)
[2016-09-27] MEDS ORDERED: LORazepam 2 MG/1 ML VIAL IV PRN (01:02)
[2016-09-27] MEDS ORDERED: LORazepam 2 MG/1 ML VIAL IV SCH (09:00)
[2016-09-27] MEDS: CEFTAROLINE 600 MG in SODIUM CHLORIDE 0.9% 100 ML IV SCH ×2 (10:25→22:14)
[2016-09-27] MEDS: LEVOFLOXACIN 500 MG TABLET PO SCH (10:25)
[2016-09-27] MEDS: amLODIPine 5 MG TABLET PO SCH (10:25)
[2016-09-27] MEDS: metFORMIN 500 MG TABLET PO SCH ×3 (10:25→17:59)
[2016-09-27] MEDS: [UNRECOGNIZED DRUG - OTHER] PO SCH (10:26)
[2016-09-27] MEDS: INSULIN REGULAR 100 UNIT/ML SUBCUT SCH ×4 (10:26→22:14)
[2016-09-27] MEDS: ONDANSETRON 4 MG/2 ML VIAL IV PRN ×2 (10:30→22:19)
[2016-09-27] MEDS: PANTOPRAZOLE 40 MG TABLET PO SCH (10:30)
--- NOTE | 2016-09-27 10:43 | Pulmonology Progress Note ---
Pulmonary - PN: Subj Interval history: Patient is a 41-year-old black lady that has metastatic breast cancer. She has had a persistent right lower lobe infiltrate along with some effusion. She did have a thoracentesis last week. She has some cough and shortness of breath but otherwise has been relatively stable she did have an echocardiogram yesterday that showed good left ventricular function. She did well with a bronchoscopy. Her cultures are negative and clinically she is doing better. She says her cough and shortness of breath are better. She says she did have a little nausea earlier but is better. She does not feel like she is having trouble breathing. Exam (Progress Note) - Constitutional Vitals: Period Temp Pulse Resp BP Sys/Ferguson Pulse Ox Last 24 Hr 97.6 F-97.7 F 92-121 17-20 100-117/45-70 93-100 Exam: General appearance: no acute distress, over weight, she looks comfortable sitting up in a chair. She is not having any respiratory distress. - Head Head exam: Present: normal inspection, normocephalic - Eye Eye exam: Present: EOMI. Absent: scleral icterus Pupils: Present: KERWIN - ENT ENT exam: Present: normal exam - Neck Neck exam: Present: normal inspection. Absent: lymphadenopathy, thyromegaly - Respiratory Respiratory exam: Present: She has fairly good air movement and her lungs do sound better. She does have slight crackles in the right base. - Cardiovascbetular Cardiovascular exam: Present: regular rate and rhythm. Absent: gallop, systolic murmur - GI/Abdominal GI/Abdominal exam: Present: normal bowel sounds, soft. Absent: organomegaly, tenderness - Extremities Exam Extremities exam: Absent: calf tenderness, edema, she is moving around okay. - Neurological Exam Neurological exam: Present: alert, oriented X3, CN II-XII intact, no focal deficit - Psychiatric Psychiatric exam: Present: normal affect - Skin Skin exam: Present: warm, dry Results - Labs CBC & BMP: 09/23/16 05:12 09/23/16 05:12 Assessment and Plan (1) Diabetes mellitus Status: Chronic Assessment and plan: Her glucoses are doing okay and her glucose is 121 this morning. Current Visit: No Qualifiers: Diabetes mellitus type: type 2 (2) Hypertension Status: Acute Assessment and plan: Her blood pressure and heart rate are doing a little better now. Current Visit: No (3) Metastatic breast cancer Status: Chronic Assessment and plan: The patient is undergoing treatment for metastatic breast cancer. Current Visit: No (4) Pleural effusion Status: Acute Assessment and plan: She had a thoracentesis last week and did fairly well with this. She has only a small amount of fluid present now. I cannot detect any increasing effusion Current Visit: No (5) Pneumonia Status: Acute Assessment and plan: She continues to have right lower lobe consolidation. Airways looked okay yesterday. Her cultures are still negative. He is having less cough and less shortness of breath. Overall she seems to be a little better. She looks quite stable and is doing better. She feels like she may want to go home tomorrow. Current Visit: No
--- NOTE | 2016-09-27 11:47 | Hospitalist Progress Note ---
Assessment and Plan (1) Pneumonia Status: Acute Assessment and plan: Patient has been on Ceftrnoline and Levaquin she is afebrile and shortness of breath better also followed by the pulmonary Current Visit: No (2) Pleural effusion Status: Acute Assessment and plan: Very small pleural effusion with infiltrate being treated for pneumonia not enough fluid for thoracentesis Current Visit: No (3) Diabetes mellitus Status: Chronic Assessment and plan: Blood sugar is controlled Current Visit: No Qualifiers: Diabetes mellitus type: type 2 (4) Metastatic breast cancer Status: Chronic Assessment and plan: Followed at [facility] Current Visit: No Hospitalist: Subjective Interval history: Ms. Rosales is a 41-year-old female with history of hypertension diabetes mellitus and metastatic breast cancer being treated at [facility] . She was recently admitted for the right pleural effusion and underwent thoracentesis and discharged on Levaquin. She returned with a short of breath and cough no history of fever. Exam - Constitutional Vitals: Period Temp Pulse Resp BP Sys/Ferguson Pulse Ox Last 24 Hr 97.6 F-97.7 F 92-121 17-20 100-117/45-70 93-100 General appearance: no acute distress - Respiratory Respiratory exam: Present: decreased breath sounds (Mild decrease air entry right base). Absent: rales, rhonchi - Cardiovascular Cardiovascular exam: Present: regular rate and rhythm. Absent: tachycardia - GI/Abdominal GI/Abdominal exam: Present: normal bowel sounds, soft. Absent: distended, tenderness - Extremities Exam Extremities exam: Absent: edema - Neurological Exam Neurological exam: Present: alert, oriented X3 Results - Labs CBC & BMP: 09/23/16 05:12 09/23/16 05:12 Lab Results: I have reviewed the past 24 hour labs
[2016-09-28] MEDS: LEVALBUTEROL 1.25 MG/3 ML NEB RESP TX SCH ×2 (08:02→14:04)
[2016-09-28] MEDS: [UNRECOGNIZED DRUG - OTHER] PO SCH (08:43)
[2016-09-28] MEDS: LEVOFLOXACIN 500 MG TABLET PO SCH (08:43)
[2016-09-28] MEDS: amLODIPine 5 MG TABLET PO SCH (08:44)
[2016-09-28] MEDS: PANTOPRAZOLE 40 MG TABLET PO SCH (08:44)
[2016-09-28] MEDS: metFORMIN 500 MG TABLET PO SCH ×2 (08:44→12:14)
[2016-09-28] MEDS: INSULIN REGULAR 100 UNIT/ML SUBCUT SCH (08:47)
[2016-09-28] MEDS: ONDANSETRON 4 MG/2 ML VIAL IV PRN (09:47)
[2016-09-28] MEDS: CEFTAROLINE 600 MG in SODIUM CHLORIDE 0.9% 100 ML IV SCH (09:50)
--- NOTE | 2016-09-28 10:55 | Pulmonology Progress Note ---
Pulmonary - PN: Subj Interval history: This 41-year-old female has metastatic breast cancer with a right pleural effusion and right pneumonia. She is improved and has room air oxygen saturation 98%. Should be ready to go home on oral antibiotics. Exam (Progress Note) - Constitutional Vitals: Period Temp Pulse Resp BP Sys/Ferguson Pulse Ox Last 24 Hr 97.1 F-98.3 F 78-128 18-20 104-126/64-77 92-98 Exam: Patient is alert oriented vital signs normal. Pupils react to light. Throat is clear. Neck supple no bruits. Chest reveals some decreased breath sounds at the right base otherwise clear. Heart normal rate and rhythm no murmurs. Abdomen soft no masses. Extremities no clubbing cyanosis or edema. Calves nontender. Results - Labs CBC & BMP: 09/23/16 05:12 09/23/16 05:12 Lab Results: I have reviewed the past 24 hour labs Assessment and Plan (1) Metastatic breast cancer Status: Chronic Assessment and plan: Defer to oncology for follow-up. Current Visit: No (2) Pneumonia Status: Acute Assessment and plan: Clinically improved should be able to go home on oral antibiotics. Current Visit: No (3) Pleural effusion Status: Acute Assessment and plan: Cytology was negative. Current Visit: No
--- NOTE | 2016-09-28 11:40 | Discharge Summary ---
Hospital Course - Hospital Course Hospital Course: Ms. Rosales is a 41-year-old female with history of hypertension diabetes mellitus and metastatic breast cancer being treated at [facility] . She was recently admitted for the right pleural effusion and underwent thoracentesis and discharged on Levaquin. She returned with a short of breath and cough no history of fever. Her chest exam showed right basilar atelectasis versus infiltrate and pleural effusion not much changed from the previous study. She was started on antibiotics he had been on Levaquin was added Ceftranoline. She underwent bronchoscopy on 09/24/2016 and reported Right lower lobe infiltrate with no signs of endobronchial obstruction or tumor. Her bronchial wash cultures has been negative her blood culture has been negative. He symptomatically much improved and remained afebrile. She is hemodynamically stable and maintaining O2 sat at 98% room air. Tachycardia was noted on vital sign but the repeat blood pressure 135/84 and heart rate 109 and according to patient that happened after the breathing treatment. Dr. Herman saw in the absence of Dr. Hernandez and recommend she can go home on oral antibiotics since her culture has been negative I will continue Levaquin for another 5 days I will give prescription if she does not have one at home I am not able to do med reconciliation on computer so will do manually Discharge medications are Examestane 25 mg daily with supper Sonata 5 mg bedtime Amlodipine 5 mg daily Metformin 5 mg 3 times daily with meals Albuterol or Ventolin inhaler 1 puff every 4 as needed next levofloxacin 5 mg daily for 5 days Investigational medication and Entinostat 5 mg or placebo Diagnosis - Discharge Diagnosis (1) Pneumonia Status: Acute (2) Pleural effusion Status: Acute (3) Diabetes mellitus Status: Chronic (4) Metastatic breast cancer Status: Chronic Discharge Plan - Discharge Data Disposition: Disch To Home/Self Care Condition at Discharge: Stable Discharge Diet: advance to your usual diet Activity: resume usual activities as tolerated - Discharge Medications No Action Exemestane 25 mg PO DAILY W/SUPPER Zaleplon [Sonata] 5 mg PO BEDTIME PRN #0 capsule PRN Reason: Insomnia amLODIPine [Norvasc] 5 mg PO DAILY tablet metFORMIN [Glucophage] 500 mg PO TID W/MEALS tablet Albuterol Sulfate [Proair Hfa] 1 puff INH Q4H PRN PRN Reason: Shortness Of Breath/Wheezing levoFLOXacin [Levofloxacin] 500 mg PO DAILY InvestigationalEntinostat 5mg Or Placebo *Investigational 5 mg PO TU - Follow Up or Referral - Forms/Instructions Exam - Constitutional Vitals: Period Temp Pulse Resp BP Sys/Ferguson Pulse Ox Last 24 Hr 97.1 F-98.3 F 78-128 18-20 104-126/64-77 92-98 - Respiratory Respiratory exam: Present: clear to auscultation bilaterally. Absent: rales ( With decrease air entry right base), rhonchi - Cardiovascular Cardiovascular exam: Present: regular rate and rhythm, tachycardia (mild post neb treatment) - GI/Abdominal GI/Abdominal exam: Present: normal bowel sounds, soft. Absent: tenderness - Extremities Exam Extremities exam: Absent: edema - Neurological Exam Neurological exam: Present: alert, oriented X3 Discharge Results Procedures and tests throughout hospitalization: Pending Orders 09/24/16 AFB Culture/Smears Routine Fungal Culture w/ Prep Routine 09/24/16 07:53 Cytology Request Routine Labs on day of discharge: Labs from last 24 hours 09/28/16 09/27/16 09/27/16 07:47 22:13 17:24 POC Glucose 87 151 H 157 H 09/27/16 11:28 POC Glucose 222 H DS: Provider Date of admission: 09/22/16 19:53 Primary care physician: . No PCP Attending physician on admission: Kole Nieto MD Consults: 09/22/16 20:35 Consult to Physician [CONS] Routine Comment: Pleural effusion and shortness of breath Consulting Provider: Jarred Hernandez Person Notified: GUY Date Notified: 09/23/16 Time Notified: 08:45 Discharging clinician: Pierce Giron MD
[2016-09-28 15:37] VITALS: BP 122/77
== END 2016-09-28 14:24 | disposition home or self-care (01) | DRG 194 ==
LOC: N.ED 18:01 → N.EDINP 19:53 → SUATTDRO 19:53 → N.2E 20:16
PROVIDERS: ADMIT Internal Medicine Infectious Disease; ATTEND Internal Medicine

== ENCOUNTER 2017-03-12 09:57 | Inpatient (IN) ==
[2017-03-12 10:56] LABS: Basophils % 0.7 % (0.0-0.8); Eosinophils # 0.1 10*3/uL (0.0-0.87); Eosinophils % 1.8 % (0.00-10.9); Hematocrit 33.2 VOL% (35.7-47.0); Hemoglobin 11.5 GM/DL (12.0-16.0); Immature Granulocytes % 0.4 %; Immature Granulocytes Absolute 0.01 #; Lymphocytes # 0.3 10*3/uL (1.4-4.0); Mean Corpuscular HGB Conc 34.6 GM/DL (32-36); Mean Corpuscular Hemoglobin 31 PG (27-34); Mean Corpuscular Volume 88.8 FL (87-102); Mean Platelet Volume 10.5 FL (9.6-12.0); Monocytes # 0.2 10*3/uL (0.11-0.8); Monocytes % 6.3 % (1.7-12.7); Neutrophils # 2.2 10*3/uL (1.4-7.4); Neutrophils % 79.8 % (38.7-73.9); Platelet Count 210 T/CUMM (130-400); Red Blood Count 3.74 MC/CUMM (3.8-5.5); Red Cell Distribution Width 16.8 % (9.3-17.3); White Blood Count 2.7 T/CUMM (4-12)
--- NOTE | 2017-03-12 10:56 | Emergency Department Note ---
Arrival - Arrival Chief Complaint: Abdominal / Flank Pain Stated Complaint: back and side pain ED Nursing Triage Note: pt ambulatory to triage with c/o having right flank pain with abd pain. pt denies any n/v. pt denies any urinary c/o. Mode of Arrival: Wheelchair Time Seen by Provider: 03/12/17 10:44 - History of Present Illness HPI Narrative: 41-year-old black female presents to the ER with a chief complaint of right- sided abdominal/right flank pain onset this morning upon awakening. She reports her last bowel movement was this morning and was a small amount. Last prior bowel movement 3 or 4 days ago. She reports this pattern is normal for her. Reports dysuria and increased urinary frequency. Denies hematuria. Denies fever. Patient denies pain at rest, and reports that the pain is exacerbated by movement. It is diffuse and nonradiating. Patient also reports intermittent shortness of breath. Denies dyspnea at present. Patient has multiple comorbidities, including metastatic breast cancer, hypertension, non- insulin-dependent diabetes mellitus. She had a right sided mastectomy in 2011. Last radiation was December 18, 2016. Patient is currently taking ibrance, 3 weeks on, 1 week off. She is on her week off now. Denies history of smoking. Of significance, patient was diagnosed with pneumonia in August and had a bronchoscopy by Dr. Hernandez. Oncology: Dr. Hill. PCP: Marlene. Allergies/Adverse Reactions: Allergies Allergy/AdvReac Type Severity Reaction Status Date / Time Penicillins Allergy HIVES Verified 03/12/17 10:07 Home Medications: Home Medications Medication Instructions Recorded Confirmed Type Exemestane 25 mg PO DAILY W/SUPPER 09/14/16 09/22/16 History Zaleplon [Sonata] 5 mg PO BEDTIME PRN #0 capsule 09/17/16 09/22/16 Rx amLODIPine [Norvasc] 5 mg PO DAILY tablet 09/17/16 09/22/16 Rx metFORMIN [Glucophage] 500 mg PO TID W/MEALS tablet 09/17/16 09/22/16 Rx InvestigationalEntinostat 5mg 5 mg PO TU 09/22/16 09/22/16 History Or Placebo *Investigational Albuterol Sulfate [Proair Hfa] 1 puff INH Q4H PRN 04/23/17 04/23/17 History Review of System - Review of System 12 point system: reviewed and no additional remarkable complaints except as stated - Review of System Constitutional: Present: as per HPI. Absent: fever Medical,Surgical,& Family Hx - Medical History Cardio: History of: Hypertension HEENT: History of: Eye Problem (far sighted) Endocrine: History of: Diabetes Mellitus (NIDDM) No history of: Diabetes Mellitus (IDDM) Respiratory: History of: Pneumonia No history of: Asthma, Bronchitis, COPD, Intubation, Obstructive Sleep Apnea , Pulmonary Embolism, Pulmonary Hypertension, Lung Cancer, Respiratory Problems Reproductive: History of: Breast Cancer (right) Other: No history of: Cancer, Eczema, HIV, Malignant Hyperthermia - Surgical History Thoracic Surgeries: Patient denies;: Lobectomy HEENT Surgeries: Patient denies: Eye Surgery, Thyroid Surgery, Tonsilectomy & Adenoidectomy Abdominal Surgeries: Patient denies: Abdominal Surgery, Appendectomy, Cholecystectomy, Colonoscopy , Gastric Bypass Surgery, EGD, Hernia Repair Reproductive Surgeries: Surgical HX of;: Breast Surgery, Gynecologic Surgery (R Masectomy (2011)) Patient denies;: Section, Dilation and Curettage, Hysterectomy, Tubal Ligation - Family History Family History: Reports;: Family Cancer (mat gf), Family Diabetes (pat gm), Family Hypertension (pat gm,aunt x2) Denies;: Family Anesthesia Reaction, Family Heart Disease, Family Psychiatric Problems, Family Stroke - Social History Smoking Status: Never smoker Frequency of Alcohol Use: None Type of Drug Use: None Exam Vital Signs: Vital Signs Temperature 98.6 F 03/12/17 10:05 Pulse Rate 117 H 03/12/17 10:05 Respiratory Rate 17 03/12/17 10:05 Blood Pressure 98/74 03/12/17 10:05 O2 Sat by Pulse Oximetry 92 L 03/12/17 10:03 - General General appearance: alert, in no apparent distress (Though patient appears ill) - Eye Eye exam: Present: normal appearance, EOMI - ENT ENT exam: Present: normal exam, mucous membranes moist - Neck Neck exam: Present: normal inspection, full ROM - Chest Chest inspection: Present: symmetric chest wall rise (Prior right mastectomy with nonhealing lesion approximately 3 cm x 1 cm, serosanguineous drainage, dressing intact) - Respiratory Respiratory exam: Present: normal lung sounds bilaterally (Diminished bibasilar) - Cardiovascular Cardiovascular exam: Present: normal rhythm, tachycardia, normal heart sounds - Abdominal Exam Abdominal exam: Present: soft, normal bowel sounds. Absent: distention, tenderness, guarding, rebound - Extremities Exam Extremities exam: Present: normal capillary refill, other (Residual right upper extremity weakness) - Back Exam Back exam: Present: normal inspection. Absent: CVA tenderness (R), CVA tenderness (L) - Neurological Exam Neurological exam: Present: alert, oriented X3 - Skin Skin exam: Present: warm, dry Course Course Narrative: Dr. Don will admit patient. Updated patient. - Consultations Consultation #1: Dr. Don Time: 13:00 Results - Labs CBC & BMP: 03/12/17 09:51 03/12/17 09:51 Lab Results: I have reviewed the patients labs - Diagnostic Findings Procedure: X-ray: image reviewed by me, report reviewed by me (Pneumonia, effusion, atelectasis) Disposition Clinical Impression: Pneumonia, Pleural effusion Case discussed with: patient Disposition: Still a Patient Condition: Guarded Time of Disposition: 13:00
[2017-03-12 11:05] LABS: PT Patient Result 10.3 SECS; Partial Thromboplastin Time 23.6 SECS (0-40)
--- NOTE | 2017-03-12 11:15 | XRay Report ---
XR chest 2V Date: 03/12/2017 10:44 AM History: Shortness of breath Comparison: 12/24/2016, PET/CT 01/13/2017 Technique: PA and lateral chest Findings: The heart remains normal in size. More well-defined masslike finding in the right mid to lower lung zone with smaller right pleural effusion. Persistent small left pleural effusion with reduced atelectasis at the left lung base. Degenerative changes are noted. Impression:Ill-defined masslike density in the right mid to lower lung zone in patient with known carcinoma of the breast. At least some of this finding can be seen with pneumonia with smaller right pleural effusion. Persistent small left pleural effusion with reduced atelectasis at the left lung base. PROCEDURE INTERPRETED AT [facility] DEPARTMENT OF RADIOLOGY Final Report Signed by: Dr. Ginna Reyes
[2017-03-12 11:29] LABS: Albumin 3.9 G/DL (3.4-5.0); Bilirubin,Total 0.7 MG/DL (0.2-1.0); Calcium 10.3 MG/DL (8.5-10.1); Osmolality,Calculated 278.7 MOS/KG (273-304); Potassium 3.4 MMOL/L (3.5-5.1); Total Protein 9.1 G/DL (6.4-8.3)
[2017-03-12 11:45] LABS: Apearance,Urine CLOUDY (Clear); Bacteria,Urine Few /HPF (Few); Bilirubin,Urine Negative (Negative); Blood, Urine Negative (Negative); Glucose,Urine (UA) 50 mg/dL (Negative); Hyaline Casts,Urine 15 /LPF (0-3); Ketones,Urine 5 mg/dL (Negative); Mucus,Urine Many /LPF (Occasional); Nitrite,Urine Negative (Negative); Protein,Urine 100 MG/DL; RBC,Urine 6 /HPF (0-4); Squamous Epithelial Cell,Urine Few /HPF (0-10); Urine Color Amber (Yellow); Urine Specific Gravity 1.024 (1.001-1.035); WBC,Urine 66 /HPF (0-6)
[2017-03-12] MEDS ORDERED: LEVOFLOXACIN INJ 750 MG in PREMIX 1 EACH IV STA (13:05)
[2017-03-12] MEDS ORDERED: LEVOFLOXACIN INJ 150 ML IV ONE (13:15)
[2017-03-12] MEDS ORDERED: ONDANSETRON ODT 4 MG TABLET PO PRN (17:36)
--- NOTE | 2017-03-12 17:39 | Oncology History&Physical ---
Assessment and Plan - Time spent with patient Time spent with patient: Greater than 30 minutes (1) UTI (urinary tract infection) Status: Acute Assessment and plan: She received Levaquin in the emergency room. I will likely go ahead and give her a dose of Rocephin as well. I do not anticipate that she will need to be in the hospital long. Current Visit: Yes (2) Metastatic breast cancer Status: Chronic Current Visit: No (3) Pneumonia Status: Acute Current Visit: No (4) Pleural effusion Status: Acute Current Visit: No History of Present Illness History of present illness: Ms. Rosales is a 41 year old female metastatic breast cancer that was previously treated at [facility] recently transferred her care here to [place] approximately 4 months ago. She is currently on Faslodex and I Venegas's. I am fearful that she has been progressing on this recently but it was too early to change therapy. She presented to the ER today complaining of right flank pain. She was found to have a UTI. There is also some concern that she may have an underlying right-sided pneumonia so she was admitted for further treatment and evaluation. Will at least watch her overnight and reassess tomorrow. Home Medications Medication Instructions Recorded Confirmed Type amLODIPine [Norvasc] 5 mg PO DAILY tablet 09/17/16 03/12/17 Rx metFORMIN [Glucophage] 500 mg PO TID W/MEALS tablet 09/17/16 03/12/17 Rx Albuterol Sulfate [Proair Hfa] 1 puff INH Q4H PRN 09/22/16 03/12/17 History Gabapentin [Gabapentin] 1 tablet PO TID 03/12/17 03/12/17 History LORazepam [Lorazepam] 1 tablet PO BEDTIME 03/12/17 03/12/17 History Ondansetron Odt Tab [Zofran Odt] 1 tablet PO Q6HR PRN 03/12/17 03/12/17 History Palbociclib [Ibrance] 1 tablet PO DAILY 03/12/17 03/12/17 History Allergies Allergy/AdvReac Type Severity Reaction Status Date / Time Penicillins Allergy HIVES Verified 03/12/17 10:07 Medical,Surgical,& Family Hx - Medical History Cardio: History of: Hypertension HEENT: History of: Eye Problem (far sighted) Endocrine: History of: Diabetes Mellitus (NIDDM) No history of: Diabetes Mellitus (IDDM) Respiratory: History of: Pneumonia No history of: Asthma, Bronchitis, COPD, Intubation, Obstructive Sleep Apnea , Pulmonary Embolism, Pulmonary Hypertension, Lung Cancer, Respiratory Problems Reproductive: History of: Breast Cancer (right) Other: No history of: Cancer, Eczema, HIV, Malignant Hyperthermia - Surgical History Thoracic Surgeries: Patient denies;: Lobectomy HEENT Surgeries: Patient denies: Eye Surgery, Thyroid Surgery, Tonsilectomy & Adenoidectomy Abdominal Surgeries: Patient denies: Abdominal Surgery, Appendectomy, Cholecystectomy, Colonoscopy , Gastric Bypass Surgery, EGD, Hernia Repair Reproductive Surgeries: Surgical HX of;: Breast Surgery, Gynecologic Surgery (R Masectomy (2011)) Patient denies;: Section, Dilation and Curettage, Hysterectomy, Tubal Ligation - Family History Family History: Reports;: Family Cancer (mat gf), Family Diabetes (pat gm), Family Hypertension (pat gm,aunt x2) Denies;: Family Anesthesia Reaction, Family Heart Disease, Family Psychiatric Problems, Family Stroke - Social History Smoking Status: Never smoker Frequency of Alcohol Use: None Type of Drug Use: None 12 point system: reviewed and no additional remarkable complaints except as stated - Constitutional Constitutional: Present: fatigue - Gastrointestinal Gastrointestinal: Present: abdominal pain Exam - Constitutional Vitals: Period Temp Pulse Resp BP Sys/Ferguson Pulse Ox Last 24 Hr 96.8 F-98.6 F 110-123 17-116 90-120/55-85 92-100 General appearance: normal weight, no acute distress - Head Head Exam: Present: normocephalic, atraumatic - Eye Eye Exam: Present: EOMI Pupils: Present: PERRL - ENT ENT exam: Present: normal exam, normal oropharynx - Neck Neck exam: Absent: lymphadenopathy, thyromegaly - Respiratory Respiratory exam: Present: CTAB. Absent: wheezes - Cardiovascular Cardiovascular exam: Present: tachycardia. Absent: JVD - GI/Abdominal GI/Abdominal exam: Present: soft. Absent: ascites, distended, mass - Neurological Exam Neurological exam: Present: alert, oriented X3 - Psychiatric Psychiatric exam: Present: normal affect, normal mood - Skin Skin exam: Present: warm, dry Results - Labs CBC & BMP: 03/12/17 09:51 03/12/17 09:51 Lab Results: I have reviewed the past 24 hour labs
[2017-03-12] MEDS ORDERED: SODIUM CHLORIDE 0.9% 500 ML IV ONE ×2 (17:40→18:25)
--- NOTE | 2017-03-12 18:21 | Order Completion Report ---
See report scanned to EMR
[2017-03-12] MEDS: SODIUM CHLORIDE 0.9% 1,000 ML IV SCH (19:49)
[2017-03-12] MEDS: GABAPENTIN 400 MG CAPSULE PO SCH (20:12)
[2017-03-12] MEDS: LORazepam 1 MG TABLET PO SCH (20:12)
[2017-03-13] MEDS: SODIUM CHLORIDE 0.9% 1,000 ML IV SCH ×2 (05:36→20:58)
[2017-03-13 06:15] LABS: Eosinophils % 2.1 % (0.00-10.9); Hematocrit 31.5 VOL% (35.7-47.0); Hemoglobin 10.7 GM/DL (12.0-16.0); Immature Granulocytes Absolute 0.02 #; Lymphocytes # 0.2 10*3/uL (1.4-4.0); Lymphocytes % 8.8 % (21.3-54.2); Mean Corpuscular Hemoglobin 31 PG (27-34); Mean Corpuscular Volume 90.3 FL (87-102); Mean Platelet Volume 10.7 FL (9.6-12.0); Monocytes # 0.1 10*3/uL (0.11-0.8); Monocytes % 6.7 % (1.7-12.7); Neutrophils # 1.6 10*3/uL (1.4-7.4); Neutrophils % 80.4 % (38.7-73.9); Platelet Count 187 T/CUMM (130-400); Red Blood Count 3.49 MC/CUMM (3.8-5.5); Red Cell Distribution Width 16.6 % (9.3-17.3); White Blood Count 1.9 T/CUMM (4-12)
[2017-03-13 06:47] LABS: Band Neutrophils 1 % (0-10); Eosinophils 3 % (0-10); Lymphocytes 9 % (20-55); Segmented Neutrophils 77 % (50-85); Total Cells Counted 100
[2017-03-13 06:48] LABS: Anisocytosis 1+; Hypochromasia 1+; Microcytosis 1+; Platelet Estimate Adequate
[2017-03-13 06:50] LABS: Alanine Aminotransferase 23 U/L (13-56); Albumin 3.4 G/DL (3.4-5.0); Alkaline Phosphatase 112 U/L (45-117); Aspartate Amino Transferase 32 U/L (0-37); Bilirubin,Total < 0.39 MG/DL (0.2-1.0); Blood Urea Nitrogen 24 MG/DL (7-18); Calcium 8.8 MG/DL (8.5-10.1); Glucose 109 MG/DL (74-106); Magnesium 1.7 MG/DL (1.8-2.4); Osmolality,Calculated 281.5 MOS/KG (273-304); Potassium 3.8 MMOL/L (3.5-5.1); Sodium 139 MMOL/L (136-145); Total Protein 7.4 G/DL (6.4-8.3)
[2017-03-13 07:00] LABS: Immunoglobulin A 253 MG/DL (70-400); Immunoglobulin G 1460 MG/DL (700-1600); Immunoglobulin M 68 MG/DL (40-230)
--- NOTE | 2017-03-13 08:32 | Oncology Progress Note ---
Assessment and Plan (1) Metastatic breast cancer Status: Chronic Current Visit: No (2) Pneumonia Status: Acute Current Visit: No (3) Pleural effusion Status: Acute Current Visit: No Oncology Subjective PN Interval history: Ms. Rosales is doing better today. She still having some pain in her right flank. We will continue Rocephin and Levaquin for now. I will repeat a CT scan for mainly staging purposes today we can also look at his right chest to see if we see any underlying infiltrate. Anticipate that she will be ready for discharge tomorrow. She was scheduled to see me in clinic today but of course this can be canceled since I am seeing her in the hospital. She was due Faslodex today but I am unsure if we will give this in the hospital need to wait till next week since this is usually an outpatient medicine and I am not sure it will be covered while she is an inpatient. Exam - Constitutional Vitals: Period Temp Pulse Resp BP Sys/Ferguson Pulse Ox Last 24 Hr 96.2 F-98.6 F 102-123 17-116 90-120/55-85 92-100 General appearance: normal weight, no acute distress - Head Head Exam: Present: normocephalic, atraumatic - Eye Eye Exam: Present: EOMI Pupils: Present: PERRL - ENT ENT exam: Present: normal exam, normal oropharynx - Neck Neck exam: Absent: lymphadenopathy, thyromegaly - Respiratory Respiratory exam: Present: CTAB, decreased breath sounds. Absent: wheezes - Cardiovascular Cardiovascular exam: Present: tachycardia. Absent: JVD, systolic murmur - GI/Abdominal GI/Abdominal exam: Present: soft. Absent: ascites, distended, mass Results - Labs CBC & BMP: 03/13/17 05:54 03/13/17 05:54 Lab Results: I have reviewed the past 24 hour labs
[2017-03-13] MEDS: PALBOCICLIB PO SCH (08:43)
[2017-03-13] MEDS: metFORMIN 500 MG TABLET PO SCH ×3 (08:43→16:50)
[2017-03-13] MEDS: GABAPENTIN 400 MG CAPSULE PO SCH ×3 (08:43→20:51)
[2017-03-13] MEDS ORDERED: amLODIPine 5 MG TABLET PO SCH (09:00)
[2017-03-13] MEDS ORDERED: MYLANTA/LIDO VISC 2:1 300 ML BOTTLE SWISH/SWAL PRN (09:50)
[2017-03-13] MEDS ORDERED: LOPERAMIDE 2 MG CAPSULE PO PRN ×2 (09:50)
[2017-03-13] MEDS ORDERED: diphenhydrAMINE CAP 25 MG CAPSULE PO PRN (09:50)
[2017-03-13] MEDS ORDERED: BENZTROPINE 2 MG/2 ML AMP IV PRN (09:50)
[2017-03-13] MEDS ORDERED: ALUMINUM/MAGNES/SIMETH MAX STR 30 ML UDCUP PO PRN (09:50)
[2017-03-13] MEDS ORDERED: TEMAZEPAM 7.5 MG CAPSULE PO PRN (09:50)
[2017-03-13] MEDS ORDERED: PROMETHAZINE INJ 25 MG in SODIUM CHLORIDE 0.9% 50 ML IV PRN (09:50)
[2017-03-13] MEDS ORDERED: chlorproMAZINE 25 MG TABLET PO PRN (09:50)
[2017-03-13] MEDS ORDERED: chlorproMAZINE INJ 50 MG in SODIUM CHLORIDE 0.9% 100 ML IV PRN (09:50)
[2017-03-13] MEDS ORDERED: guaiFENesin 200 MG/10 ML UDCUP PO PRN (09:50)
[2017-03-13] MEDS ORDERED: ACETAMINOPHEN 325 MG TABLET PO PRN (09:50)
[2017-03-13] MEDS ORDERED: MAGNESIUM HYDROXIDE SUSP 30 ML UDCUP PO PRN (09:50)
[2017-03-13] MEDS ORDERED: traMADol 50 MG TABLET PO PRN (09:50)
[2017-03-13] MEDS ORDERED: ONDANSETRON 4 MG/2 ML VIAL IV PRN (09:50)
[2017-03-13] MEDS ORDERED: ALPRAZolam 0.25 MG TABLET PO PRN (09:50)
[2017-03-13] MEDS ORDERED: MYLANTA/LIDO VISC 2:1 300 ML BOTTLE SWISH/SPIT PRN (09:50)
[2017-03-13] MEDS ORDERED: chlorproMAZINE INJ 25 MG in SODIUM CHLORIDE 0.9% 100 ML IV PRN (09:50)
[2017-03-13] MEDS ORDERED: LACTULOSE 20 GM/30 ML UDCUP PO PRN (09:50)
[2017-03-13] MEDS ORDERED: DIAZEPAM 5 MG TABLET PO ONE (09:51)
[2017-03-13 10:36] LABS: Basophils % 0.5 % (0.0-0.8); Eosinophils % 1.9 % (0.00-10.9); Hematocrit 32.7 VOL% (35.7-47.0); Lymphocytes # 0.2 10*3/uL (1.4-4.0); Lymphocytes % 9.4 % (21.3-54.2); Mean Corpuscular HGB Conc 33.6 GM/DL (32-36); Mean Corpuscular Hemoglobin 31 PG (27-34); Mean Corpuscular Volume 90.8 FL (87-102); Mean Platelet Volume 10.8 FL (9.6-12.0); Monocytes # 0.1 10*3/uL (0.11-0.8); Monocytes % 6.6 % (1.7-12.7); Neutrophils # 1.7 10*3/uL (1.4-7.4); Neutrophils % 81.6 % (38.7-73.9); Platelet Count 196 T/CUMM (130-400); Red Cell Distribution Width 16.5 % (9.3-17.3); White Blood Count 2.1 T/CUMM (4-12)
[2017-03-13 11:02] LABS: Band Neutrophils 22 % (0-10); Eosinophils 1 % (0-10); Lymphocytes 9 % (20-55); Segmented Neutrophils 64 % (50-85); Total Cells Counted 100
[2017-03-13 11:03] LABS: Anisocytosis 1+; Poikilocytosis 1+
[2017-03-13 11:38] LABS: Albumin 3.4 G/DL (3.4-5.0); Bilirubin,Total 0.4 MG/DL (0.2-1.0); Calcium 9.1 MG/DL (8.5-10.1); Magnesium 1.5 MG/DL (1.8-2.4); Osmolality,Calculated 281.4 MOS/KG (273-304); Potassium 3.9 MMOL/L (3.5-5.1); Total Protein 7.5 G/DL (6.4-8.3); Uric Acid 6.6 MG/DL (2.6-6.0)
[2017-03-13 11:47] LABS: Albumin (SPE) 4.1 G/DL (3.2-5.3); Albumin (SPE) Rel % 55.3 %; Alpha 1 (SPE) 0.3 G/DL (0.1-0.4); Alpha 1 (SPE) Rel % 3.6 %; Alpha 2 (SPE) 0.9 G/DL (0.4-1.0); Alpha 2 (SPE) Rel % 11.6 %; Beta (SPE) 0.8 G/DL (0.5-1.1); Gamma (SPE) 1.4 G/DL (0.7-1.7); Gamma (SPE) Rel % 18.5 %; Total Protein (Chem) 7.5 G/DL (6.4-8.3)
[2017-03-13] MEDS ORDERED: LEVOFLOXACIN INJ 500 MG in PREMIX 1 EACH IV SCH (13:00)
--- NOTE | 2017-03-13 13:30 | CT Report ---
CT of the chest abdomen and pelvis with intravenous contrast. No oral contrast was administered. Axial images were obtained with sagittal and coronal 2-D reconstructions. Bone and soft tissue windows were reviewed. Indication: Metastatic breast cancer. Comparison: PE chest of December 24, 2016. CT the chest: Note that comparison to the PE study is somewhat limited because the PE chest CT is timed to maximum opacification of the pulmonary artery, which does not emphasize soft tissue masses. Within the left lower neck and supraclavicular region, there is an irregular solid soft tissue mass measuring 4.8 x 5.5 cm causing mass effect on the great vessels. This is grossly similar to the previous exam. There are enlarged lymph nodes in the left anterior cervical chain. There is increased soft tissue noted along the midline of the chest wall, both anterior and posterior to the sternum and medial aspects of the rib cage. The sternum appears grossly abnormal. There are multiple soft tissue masses present within the left breast, including one laterally measuring 2.7 cm and one medially measuring 1.3 cm. The medial lesion has decreased minimally in size. There is skin thickening involving the entire left breast. There are subpectoral lymph nodes present of varying sizes, measuring up to 4.1 cm in maximum diameter. This is grossly similar in size to the previous study. The centers of some of these lymph nodes do appear necrotic. There are multiple left axillary lymph nodes as well. The thoracic aorta is of normal caliber. The heart is normal in size. The heart is displaced anteriorly and to the left. There are areas of consolidation present increased from the previous exam, in the right middle lobe and left lower lobe. There is a thick pleural rind as well as pleural effusion present on the right, stable to increased from the previous exam. Bony metastatic disease is similar to the previous study. Impression: 1. Direct comparison to the CT PE chest is somewhat limited due to different phases of contrast. There are extensive metastatic findings present involving the left neck, chest wall, and left axilla as well as the pleural surface involving the right lung and osseous structures. Generally, no significant interval change is seen with these findings compared to the previous exam. One mass, in the medial aspect of the left breast does appear to be smaller. 2. Infiltrates in the right middle lobe and left lower lobe have increased. CT of the abdomen and pelvis. No direct comparison. The liver is normal in size. There are multiple vague soft tissue mass is present within the dome of the right lobe of the liver which are not seen on the PET chest CT. Also, there is a low density mass in the caudate lobe of the liver adjacent to the gallbladder, measuring 3.1 cm. These lesions are not present on the previous CT the chest. No pancreatic abnormality is seen. There is no splenic or adrenal enlargement. The kidneys present a normal appearance. There is no free air within the peritoneal cavity. No definite free fluid is seen. The loops of bowel are not dilated. No wall thickening is seen. The terminal ileum and appendix present a normal appearance. The ovaries are upper limits of normal in size. No uterine enlargement. Bony lesions are present consistent with osseous metastatic disease. Impression: 1. There are multiple liver lesions suspicious for metastatic disease. 2. There are also findings consistent with bony metastatic disease. CT exam was performed using one or more of the following dose reduction techniques: Automated exposure control, adjustment of the mA and/or kV according to patient size, or use of iterative reconstruction technique. PROCEDURE INTERPRETED AT [facility] DEPARTMENT OF RADIOLOGY Final Report Signed by: Dr. Adele Chen
[2017-03-13] MEDS: LORazepam 1 MG TABLET PO SCH (20:51)
[2017-03-14] MEDS: PALBOCICLIB PO SCH (08:27)
[2017-03-14] MEDS: metFORMIN 500 MG TABLET PO SCH (08:27)
[2017-03-14] MEDS: GABAPENTIN 400 MG CAPSULE PO SCH (08:27)
--- NOTE | 2017-03-14 08:48 | Discharge Summary ---
Hospital Course - Hospital Course Hospital Course: Ms. Rosales is a 41-year-old black female with hormone positive metastatic breast cancer who is admitted with fevers and right-sided flank pain. Urinalysis revealed what appeared to be a urinary tract infection. However, her urine cultures are showing no growth at this time. She was treated with Levaquin and Rocephin. I double covered her given her neutropenia from her oral chemotherapy. I did a CT scan during this admission since her tumor markers have been rising recently in clinic. She has new metastatic disease in her liver that was not seen on a PET scan just in December of this month. I had a lengthy discussion with her this morning about progression and how we will convert to cytotoxic chemotherapy next week in clinic. My plan is to likely use every 3 week Taxol as single agent therapy initially. We will discontinue Faslodex and Ibrance. I will send her home with 7 days of Levaquin. She also needs a refill on her [place]. Please make an appointment to see me next at 9 AM in clinic with lab. Diagnosis - Discharge Diagnosis (1) Metastatic breast cancer Status: Chronic (2) Pneumonia Status: Acute (3) Pleural effusion Status: Acute Discharge Plan - Discharge Data Disposition: Disch To Home/Self Care Condition at Discharge: Stable Discharge Diet: advance to your usual diet Activity: resume usual activities as tolerated Hygiene: no restrictions - Discharge Medications New Hydrocodone/Acetaminophen [[place] 10-325 Tablet] 1 each PO Q4HR PRN #90 tablet PRN Reason: Pain Levofloxacin Tab [Levaquin Tab] 500 mg PO DAILY #7 tablet Continue amLODIPine [Norvasc] 5 mg PO DAILY tablet metFORMIN [Glucophage] 500 mg PO TID W/MEALS tablet Albuterol Sulfate [Proair Hfa] 1 puff INH Q4H PRN PRN Reason: Shortness Of Breath/Wheezing Ondansetron Odt Tab [Zofran Odt] 1 tablet PO Q6HR PRN PRN Reason: Nausea Gabapentin 1 tablet PO TID LORazepam [Lorazepam] 1 tablet PO BEDTIME Discontinued Palbociclib [Ibrance] 1 tablet PO DAILY - Follow Up or Referral - Forms/Instructions Exam - Constitutional Vitals: Period Temp Pulse Resp BP Sys/[place] Pulse Ox Last 24 Hr 96.3 F-98.6 F 78-123 18-20 101-139/68-93 90-100 Discharge Results Procedures and tests throughout hospitalization: Pending Orders 03/12/17 Urine Culture Routine 03/12/17 10:52 Blood Culture Stat 03/13/17 05:54 Immunoglob Free Light Chains Routine Labs on day of discharge: Labs from last 24 hours 03/13/17 03/13/17 03/13/17 10:12 10:12 05:54 WBC 2.1 L RBC 3.60 L Hgb 11.0 L Hct 32.7 L MCV 90.8 MCH 31 MCHC 33.6 RDW 16.5 Plt Count 196 MPV 10.8 Neut % (Auto) 81.6 H Lymph % (Auto) 9.4 L [place] % (Auto) 6.6 Eos % (Auto) 1.9 Baso % (Auto) 0.5 Neut # (Auto) 1.7 Lymph # (Auto) 0.2 L [place] # (Auto) 0.1 L Eos # (Auto) 0.0 Baso # (Auto) 0.0 Total Counted 100 Immature Gran % 0.0 Nucleated RBC % 0.0 Immature Gran # 0.00 Segmented Neutrophils 64 Band Neutrophils 22 H Lymphocytes 9 L Monocytes 4 Eosinophils 1 Nucleated RBCs # 0.00 Immature Plt Fraction 0.0 Poikilocytosis 1+ Anisocytosis 1+ Sodium 140 Potassium 3.9 Chloride 103 Carbon Dioxide 33 H Anion Gap 7.9 BUN 20 H Creatinine 0.90 GFR Calculation 91 BUN/Creatinine Ratio 22.00 H Glucose 98 Calculated Osmolality 281.4 Uric Acid 6.6 H Calcium 9.1 Magnesium 1.5 L Total Bilirubin 0.40 AST 33 ALT 23 Alkaline Phosphatase 109 Lactate Dehydrogenase 154 Total Protein 7.5 Albumin 3.4 Globulin 4.1 H Albumin/Globulin Ratio 0.8 L Pro Electrophoresis Int Serum Total Protein PEP 7.5 Albumin (PEP) 4.1 Albumin (relative) 55.3 Bmzbw-9-Zjwiikqg 0.3 Qjntd-0-Psywphtw rel 3.6 Oebhj-8-Ogqldoww 0.9 Mgecx-4-Wxmtjpbi rel 11.6 Xahw-3-Nbfxriqm 0.8 Knda-8-Ivmzrmud rel 11.0 Gamma Globulins 1.4 Gamma Globulins rel 18.5 Preliminary micro results at discharge 03/12/17 10:52 Blood Culture - Preliminary Blood No growth at 1 day 03/12/17 11:30 Blood Culture - Preliminary Blood No growth at 1 day 03/12/17 Unknown Urine Culture - Preliminary Urine,Voided No Growth at 24 hours. DS: Provider Date of admission: 03/12/17 13:42 Primary care physician: Roselia Rosario Attending physician on admission: Sebastian Hill MD Discharging clinician: Sebastian Hill MD
[2017-03-14 09:04] VITALS: BP 132/89
[2017-03-14] MEDS: SODIUM CHLORIDE 0.9% 1,000 ML IV SCH (09:04)
[2017-03-14 10:38] LABS: Immuno Free Light Chain Kappa 5.05 MG/DL (0.33-1.94); Immuno Free Light Chain Lambda 2.82 MG/DL (0.57-2.63); Immuno Free Light Chain Ratio 1.79 MG/DL (0.26-1.65)
== END 2017-03-14 10:20 | disposition home or self-care (01) | DRG 194 ==
LOC: N.ED 09:57 → N.EDINP 13:42 → N.4E 14:45
PROVIDERS: ADMIT Specialist; ATTEND Specialist

== ENCOUNTER 2018-01-01 14:21 | Inpatient (IN) ==
[2018-01-01] MEDS ORDERED: methylPREDNISolone SOD SUC 125 MG/2 ML VIAL IV STA (14:45)
[2018-01-01] MEDS ORDERED: LEVOFLOXACIN INJ 750 MG in PREMIX 1 EACH IV STA (14:45)
[2018-01-01] MEDS ORDERED: ALBUTEROL 2.5 MG/3 ML NEB RESP TX STA (14:45)
[2018-01-01] MEDS ORDERED: SODIUM CHLORIDE 0.9% 1,000 ML IV STA (14:45)
[2018-01-01 15:08] LABS: Red Cell Distribution Width 18.7 % (9.3-17.3)
[2018-01-01 15:15] LABS: Basophils % 0.5 % (0.0-0.8); Hematocrit 33.5 VOL% (35.7-47.0); Hemoglobin 10.5 GM/DL (12.0-16.0); Immature Granulocytes % 0.5 %; Immature Granulocytes Absolute 0.01 #; Lymphocytes # 0.1 10*3/uL (1.4-4.0); Lymphocytes % 2.6 % (21.3-54.2); Mean Corpuscular HGB Conc 31.3 GM/DL (32-36); Mean Corpuscular Hemoglobin 29 PG (27-34); Mean Platelet Volume 11.8 FL (9.6-12.0); Monocytes # 0.7 10*3/uL (0.11-0.8); Monocytes % 34.2 % (1.7-12.7); NRBC # 0.04 10*3/uL; Neutrophils # 1.2 10*3/uL (1.4-7.4); Neutrophils % 62.2 % (38.7-73.9); Platelet Count 284 T/CUMM (130-400); Red Blood Count 3.68 MC/CUMM (3.8-5.5)
[2018-01-01 15:19] LABS: INR 1.1; PT Patient Result 11.1 SECS; Partial Thromboplastin Time 36.9 SECS (0-40)
[2018-01-01 15:27] LABS: Ammonia < 10 UMOL/L (11-32)
[2018-01-01 15:40] LABS: Alanine Aminotransferase 14 U/L (13-56); Albumin 2.8 G/DL (3.4-5.0); Alkaline Phosphatase 87 U/L (45-117); Aspartate Amino Transferase 21 U/L (0-37); Blood Urea Nitrogen 49 MG/DL (7-18); Calcium 8.7 MG/DL (8.5-10.1); Glucose 120 MG/DL (74-106); Osmolality,Calculated 290.5 MOS/KG (273-304); Potassium 3.9 MMOL/L (3.5-5.1); Sodium 139 MMOL/L (136-145); Total Protein 8.1 G/DL (6.4-8.3)
[2018-01-01 16:02] LABS: Band Neutrophils 4 % (0-10); Total Cells Counted 100
[2018-01-01 16:18] LABS: Amorphous Crystals,Urine Occasional /HPF (Few); Apearance,Urine CLOUDY (Clear); Bilirubin,Urine Negative (Negative); Blood, Urine Negative (Negative); Glucose,Urine (UA) Negative (Negative); Hyaline Casts,Urine 8 /LPF (0-3); Ketones,Urine Negative (Negative); Mucus,Urine Occasional /LPF (Occasional); Nitrite,Urine Negative (Negative); Protein,Urine 30 MG/DL; Renal Epithelial Cells,Urine Occasional /HPF (<1); Urine Color Amber (Yellow); Urine Specific Gravity 1.017 (1.001-1.035)
[2018-01-01] MEDS ORDERED: chlorproMAZINE INJ 50 MG in SODIUM CHLORIDE 0.9% 100 ML IV PRN (18:19)
[2018-01-01] MEDS ORDERED: TEMAZEPAM 7.5 MG CAPSULE PO PRN (18:19)
[2018-01-01] MEDS ORDERED: MYLANTA/LIDO VISC 2:1 300 ML BOTTLE SWISH/SWAL PRN (18:19)
[2018-01-01] MEDS ORDERED: LACTULOSE 20 GM/30 ML UDCUP PO PRN (18:19)
[2018-01-01] MEDS ORDERED: LOPERAMIDE 2 MG CAPSULE PO PRN ×2 (18:19)
[2018-01-01] MEDS ORDERED: ALPRAZolam 0.25 MG TABLET PO PRN (18:19)
[2018-01-01] MEDS ORDERED: BENZTROPINE 2 MG/2 ML AMP IV PRN (18:19)
[2018-01-01] MEDS ORDERED: PROMETHAZINE INJ 25 MG in SODIUM CHLORIDE 0.9% 50 ML IV PRN (18:19)
[2018-01-01] MEDS ORDERED: traMADol 50 MG TABLET PO PRN (18:19)
[2018-01-01] MEDS ORDERED: chlorproMAZINE INJ 25 MG in SODIUM CHLORIDE 0.9% 100 ML IV PRN (18:19)
[2018-01-01] MEDS ORDERED: ALUMINUM/MAGNES/SIMETH MAX STR 30 ML UDCUP PO PRN (18:19)
[2018-01-01] MEDS ORDERED: ONDANSETRON 4 MG/2 ML VIAL IV PRN (18:19)
[2018-01-01] MEDS ORDERED: guaiFENesin 200 MG/10 ML UDCUP PO PRN (18:19)
[2018-01-01] MEDS ORDERED: ACETAMINOPHEN 325 MG TABLET PO PRN (18:19)
[2018-01-01] MEDS ORDERED: chlorproMAZINE 25 MG TABLET PO PRN (18:19)
[2018-01-01] MEDS ORDERED: diphenhydrAMINE CAP 25 MG CAPSULE PO PRN (18:19)
[2018-01-01] MEDS ORDERED: MAGNESIUM HYDROXIDE SUSP 30 ML UDCUP PO PRN (18:19)
[2018-01-01] MEDS ORDERED: MYLANTA/LIDO VISC 2:1 300 ML BOTTLE SWISH/SPIT PRN (18:19)
[2018-01-01] MEDS ORDERED: SODIUM CHLORIDE 0.9% 1,000 ML IV SCH (18:30)
[2018-01-01] MEDS ORDERED: GLUCAGON 1 MG VIAL IM PRN (18:47)
[2018-01-01] MEDS ORDERED: ALBUTEROL/IPRATROPIUM 3 ML NEB RESP TX PRN (18:47)
[2018-01-01] MEDS ORDERED: DEXTROSE 50% 25 GM/50 ML VIAL IV PRN (18:47)
[2018-01-01] MEDS ORDERED: GABAPENTIN 400 MG CAPSULE PO PRN (18:52)
[2018-01-01] MEDS ORDERED: ALBUTEROL 2.5 MG/3 ML NEB RESP TX PRN (18:52)
[2018-01-01 20:07] LABS: Uric Acid 7.4 MG/DL (2.6-6.0)
[2018-01-01] MEDS ORDERED: BENZONATATE 100 MG CAPSULE PO SCH (21:00)
[2018-01-01] MEDS ORDERED: CYPROHEPTADINE 4 MG TABLET PO SCH (21:00)
[2018-01-01] MEDS ORDERED: INSULIN LISPRO 100 UNIT/ML SUBCUT SCH (21:00)
[2018-01-01] MEDS ORDERED: MEGESTROL 40 MG TABLET PO SCH (21:00)
[2018-01-01] MEDS ORDERED: LORazepam 1 MG TABLET PO SCH (21:00)
[2018-01-02 04:08] VITALS: BP 108/87
[2018-01-02] MEDS ORDERED: LORazepam 2 MG/1 ML VIAL IV ONE (04:30)
[2018-01-02] MEDS ORDERED: LORazepam 2 MG/1 ML VIAL IV PRN (04:39)
[2018-01-02] MEDS ORDERED: MORPHINE 4 MG/1 ML VIAL IV PRN (04:39)
[2018-01-02 05:39] LABS: Lymphocytes 4 % (20-55); Myelocytes 1 %; Promyelocytes 3 %; Segmented Neutrophils 68 % (50-85)
[2018-01-02 05:40] LABS: Anisocytosis 1+; Hypochromasia 2+; Microcytosis 1+
[2018-01-02] MEDS ORDERED: amLODIPine 5 MG TABLET PO SCH (09:00)
[2018-01-02] MEDS ORDERED: PANTOPRAZOLE 40 MG VIAL IV SCH (09:00)
[2018-01-02] MEDS ORDERED: LEVOFLOXACIN INJ 250 MG in PREMIX 1 EACH IV SCH (20:00)
[2018-01-03] MEDS ORDERED: LEVOFLOXACIN INJ 750 MG in PREMIX 1 EACH IV SCH (15:30)
== END 2018-01-02 05:42 | disposition expired | DRG 194 ==
LOC: EDBD → EDUNIT# → N.ED 14:21 → N.EDINP 15:56 → N.4E 18:39
PROVIDERS: ADMIT Internal Medicine; ATTEND Internal Medicine